=== PATIENT | male | born 1950 | race Caucasian/White ===

== ENCOUNTER 2022-10-10 12:29 | Inpatient (IN) | payer MEDICARE, OTHER, SELFPAY ==
[2022-10-10] VITALS (15 sets, daily range): BP systolic 94–147; BP diastolic 53–84; PULSE 78–103; RESP 14–22; TEMP 36.8–37.3; O2SAT 71–96; BMI 26.4; BMI 27.6
--- NOTE | 2022-10-10 12:51 | RAD_ITS ---
INDICATION: chest pain EXAMINATION/TECHNIQUE: X-RAY - XR Chest 1 View COMPARISON: None. FINDINGS: LINES/DEVICES: None. LUNGS: Minimal right lower lobe fibrosis. Left lung clear. MEDIASTINUM AND CARDIOVASCULAR STRUCTURES: Cardiac silhouette not enlarged. Central airways and mediastinal contour are unremarkable. BONES AND SOFT TISSUES: Unremarkable. RAD/Chest 1 View (Portable) IMPRESSION: Minimal right lower lobe fibrosis. Electronically Signed: Yoshi Madera MD, KAMLESH at 13:45 EDT ,
--- NOTE | 2022-10-10 12:51 | EKG12_ITS ---
Test Reason : SOB Blood Pressure : / mmHG Vent. Rate : 091 BPM Atrial Rate : 091 BPM P-R Int : 138 ms QRS Dur : 080 ms QT Int : 368 ms P-R-T Axes : 004 010 079 degrees QTc Int : 452 ms Sinus rhythm with Premature atrial complexes Nonspecific ST and T wave abnormality Abnormal ECG Confirmed by MERARI MACK, ROSALBA ([id number]), acquisitions editor RACHEL CANTU ([id number]) on 10/12/2022 2:08:57 PM Referred By: YASMIN Confirmed By:ROSALBA GAGE MD
--- NOTE | 2022-10-10 12:52 | ED.VIS.DYS ---
HPI History of Present Illness Chief Complaint: Shortness of Breath Informant: patient Onset/Context/Timing Onset: Days Context: gradual Timing: Continuous Quality: Positive for Dyspnea on exertion, Orthopnea and Wheezing Current Severity: Mild Maximum Severity: Mild Worsened by: Exertion, Lying flat and Coughing Relieved by: Rest Associated Symptoms cough and clear sputum Chest Pain: Positive for Intermittent Narrative Narrative: 71-year-old male history of weak heart muscle coronary disease, diabetes, COPD quit smoking 13 years ago. Is not on home oxygen. Patient says he has had URI symptoms. He saw an urgent care they started on doxycycline on Wednesday and a prednisone taper. He said that she feels worse. He has been having coughing spells and shortness of breath the last 3 days. No hemoptysis. No leg pain or swelling. No history of DVT or PE. PE Risk Factors: Negative for Cancer, OCP + Smoking + > 35, Prior DVT or PE, Recent immobilization, Recent surgery or Recent travel Prior similar symptoms: No Recent Illness/Hospitalization: No PFSH PFS Medical History (Updated 10/10/22 @ 15:[address] Akhil Leyva MD) High cholesterol Hypertension Home Medications atorvastatin 40 mg tablet 40 mg PO DAILY 10/10/22 [History Last Taken 10/09/22] carvedilol 6.25 mg tablet 6.25 mg PO BID 10/10/22 [History Last Taken 10/10/22] clonazepam 1 mg tablet 1 mg PO BID 10/10/22 [History Last Taken 10/10/22] doxycycline hyclate 100 mg capsule 100 mg PO BID 10/10/22 [History Last Taken 10/10/22] imipramine HCl 50 mg tablet 50 mg PO DAILY 10/10/22 [History Last Taken 10/09/22] lisinopril 2.5 mg tablet 2.5 mg PO DAILY 10/10/22 [History Last Taken 10/09/22] metformin 500 mg tablet 500 mg PO BID 10/10/22 [History Last Taken 10/10/22] prednisone 10 mg tablet See Rx Instructions .Route .COMPLEX 10/10/22 [History Last Taken 10/10/22] Allergy/AdvReac Type Severity Reaction Status Date / Time Environmental Allergies: Allergy Mild Other Verified 10/10/22 12:36 Uncoded Social History Smoking Status: Unknown if ever smoked ROS ROS ED ROS Narrative Cough, shortness of breath. Review of Systems ROS Unobtainable: Denies due to encephalopathy Constitutional Constitutional ED: Denies chills or fever(s) Eyes Eyes: Denies blurry vision ENT ENT ED: Denies ear pain Cardiovascular Cardiovascular: Reports chest pain and orthopnea; Denies palpitations or racing heartbeat Respiratory/Chest Respiratory/Chest: Reports cough, dyspnea, dyspnea on exertion, orthopnea and sputum Gastrointestinal Gastrointestinal: Denies abdominal pain, constipation, diarrhea, melena, nausea or vomiting Genitourinary Genitourinary ED: Denies dysuria or hematuria Musculoskeletal Musculoskeletal: Denies arthralgias Integumentary Denies abscess Neurologic Neurologic: Denies headache(s) Psychiatric Psychiatric: Denies anxiety or depression Hematologic/Lymphatic Hematologic/Lymphatic: Denies easy bleeding or easy bruising Allergic/Immunologic Allergic/Immunologic ED: Denies mouth swelling or tongue swelling EXAM Physical Exam Narrative Exam Narrative: 69-year-old male vital signs initially were stable except for pulse ox of 71% on room air on 6 L he is at 96%. H EENT exam unremarkable. Neck nontender. No JVD. No lymphadenopathy. Lungs scattered wheezes. Primarily expiratory. No rales or rhonchi. Heart rate about 100 no murmur. Abdomen soft nontender. Moving all 4 extremities. Calves are nontender that edema or cords. Back nontender. Neurologically he is awake and alert. No focal motor deficits. Const Vital Signs: 10/10/22 12:30 10/10/22 12:36 10/10/22 13:18 Temperature 98.3 F 98.6 F Temperature Source Temporal Oral Pulse Rate 103 H 96 94 Respiratory Rate 20 H 20 H Respiratory Effort Respiratory Pattern Blood Pressure 143/72 H 147/84 H 102/70 Blood Pressure Mean 95 105 80 Pulse Ox 71 96 93 Oxygen Delivery Method Room Air Nasal Cannula Nasal Cannula Oxygen Flow Rate (L/min) 6 6 10/10/22 13:19 10/10/22 13:21 10/10/22 13:23 Temperature Temperature Source Pulse Rate 84 Respiratory Rate 14 Respiratory Effort Normal Respiratory Pattern Normal Normal Blood Pressure Blood Pressure Mean Pulse Ox 94 Oxygen Delivery Method Nasal Cannula Nasal Cannula Oxygen Flow Rate (L/min) 6 6 10/10/22 13:31 10/10/22 14:16 10/10/22 15:01 Temperature 98.6 F 98.6 F Temperature Source Oral Oral Pulse Rate 89 81 86 Respiratory Rate 22 H 15 16 Respiratory Effort Respiratory Pattern Blood Pressure 110/56 L 102/64 102/69 Blood Pressure Mean 73 77 79 Pulse Ox 93 91 93 Oxygen Delivery Method Nasal Cannula Nasal Cannula Oxygen Flow Rate (L/min) 6 6 Positive well nourished and well developed; Negative for obese, cachectic, contractures or unkempt General Appearance ED: well developed and NAD; Negative for unkempt, cachectic, contractures or pallor Nutritional Appearance: Negative for cachectic or obese HEENT Reports moist mucous membranes; Denies dry mucous membranes atraumatic; Negative for trauma or tenderness Mouth ED: No dry mucous membranes Mouth: No dry mucous membranes Eyes PERRL and EOMs intact bilaterally General Eye ED: Negative for pale conjunctiva or scleral icterus Neck no lymphadenopathy, supple, no meningeal signs and no JVD General: Negative for tenderness Lymph Lymphatic: Negative for other Resp normal respiratory effort and No clear to auscultation bilaterally Resp Narrative: Wheezing bilateral primarily expiratory. Effort and Inspection: Negative for pain with movement Auscultation: wheezes; Negative for rales or rhonchi Cardio regular rate, regular rhythm, S1 normal heart sound, S2 normal heart sound and no murmurs Rate: Negative for bradycardia or tachycardic Rhythm: Negative for abnormal rhythm GI non-tender, non-distended and no masses Inspection: Negative for other Auscultation: normoactive bowel sounds Palpation: soft; Negative for tender or guarding Back/Spine no CVA tenderness and normal to inspection General Back: Negative for CVA tenderness or tenderness Extremity normal to inspection General Extremety ED: Negative for edema, tenderness or other findings General Extremity: Negative for edema or other findings Neuro oriented x3 and CN's II-XII intact bilaterally Sensorium / Orientation: alert, oriented to person, oriented to place and oriented to time; Negative for orientation impaired, confused, lethargic or stuporous Speech: speech normal Motor Exam: strength 5/5 throughout Psych mental status grossly normal Appearance: Negative for unkempt Attitude: No agitated Mood & Affect: Negative for depressed, anxious or tearful Thought Process: normal thought process Skin no wounds General Skin Exam: Negative for jaundice or pallor Lesions: no lesions Rashes: no rashes Trauma: Negative for abrasion or laceration MDM MDM MDM Narrative Medical decision making narrative: 71-year-old male with URI symptoms and hypoxia. His initial pulse ox was in the low to mid 70s on room air. He is normally not on oxygen. This may be pneumonia versus URI versus possibly CHF with his history of a weak heart. He has no history or risk factors for PE or DVT. Patient be treated with aerosols and Solu-Medrol IV. Undergo cardiac work-up including a BNP and chest x-ray. Pneumonia is definitely a possibility. Versus a COPD flare. Repeat exam is doing well at 3:05 PM. Still has expiratory wheezing but his breathing is improved. He is on 6 L and his pulse ox is in the mid to high 90s. I am going to turn off his oxygen and have the nurses ambulate him and see what his pulse ox does. Chest x-ray, EKG and labs are unremarkable. I did add a COVID and influenza swabs. Nurses took the patient off of oxygen his sat fell to 83% before he even got up out of bed to try to walk. I spoke to the hospitalist he will be down to evaluate the patient for admission. Awaiting the COVID and influenza swabs. History & Record Review Discussion w/independent historian: Patient and Family Lab Data Attestation: I reviewed the patient's lab results. Lab results narrative: CBC is unremarkable white count 8.9. H&H is 16 and 48. Platelets 189. Electrolytes show sodium 133. Gap of 7. Normal BUN of 17 creatinine 1.2. Glucose 216 she is diabetic. Troponin normal at 11. BNP normal at 46. Chest x-ray shows chronic changes no acute infiltrate or pneumonia. Labs: Laboratory Results - last 24 hr 10/10/22 10/10/22 10/10/22 12:35 12:35 12:35 WBC 8.9 RBC 4.97 Hgb 16.0 Hct 48.1 MCV 96.8 H MCH 32.2 H MCHC 33.3 RDW Std Deviation 50.9 H RDW Coeff of Yuliya 14.2 Plt Count 189 MPV 11.7 Immature Gran % (Auto) 0.700 Neut % (Auto) 75.6 H Lymph % (Auto) 13.6 L [place] % (Auto) 9.6 Eos % (Auto) 0.2 Baso % (Auto) 0.3 Absolute Neuts (auto) 6.8 Absolute Lymphs (auto) 1.22 Nucleated RBC % 0 Sodium 133 L Potassium 3.9 Chloride 97 L Carbon Dioxide 29.0 Anion Gap 7 BUN 17 Creatinine 1.20 Estim Creat Clear Calc 55.64 Est GFR (MDRD) Af Amer 76 Est GFR (MDRD) Non-Af 63 BUN/Creatinine Ratio 14.2 Glucose 216 H Calcium 9.2 Troponin I High Sens 11 B-Natriuretic Peptide 46.0 Radiography Chest X-Ray - ED: 1 View, Read by ED Physician, Normal, Heart, Lungs, Mediastinum and Bony Structures Diagnostic Testing: Clinical Impression(s) from Imaging Studies Chest X-Ray 10/10/22 12:51 IMPRESSION: Minimal right lower lobe fibrosis. Electronically Signed: Yoshi Madera MD, KAMLESH at 13:45 EDT , Chest x-ray, portable, single view, interpreted by myself shows no acute abnormality. Normal cardiac silhouette. No infiltrates. No CHF. No Rhythm Strip Rhythm Strip: Sinus Rhythm Rate: 91 Ectopy: PAC(s) EKG Initial EKG: Attestation: I personally reviewed and interpreted this EKG as follows: Interpretation: Sinus Rhythm and No Acute Injury Pattern Comments: Sinus rhythm rate of 91 occasional PACs. No signs of acute [place]. Nonspecific ST-T wave abnormality in the lateral leads. Discharge Plan Triage Chief Complaint: Shortness of Breath ED Provider: Akhil Leyva Dx/Rx/DC Orders Clinical Impression: URI (upper respiratory infection), Asthma exacerbation in COPD, Hypoxia, History of diabetes mellitus Prescriptions: No Action atorvastatin 40 mg Tablet 40 mg PO DAILY metformin 500 mg Tablet 500 mg PO BID imipramine HCl 50 mg Tablet 50 mg PO DAILY carvedilol 6.25 mg Tablet 6.25 mg PO BID Rx Instructions: must administer with a meal/food prednisone 10 mg Tablet See Rx Instructions .ROUTE .COMPLEX Rx Instructions: 4 tabs daily x2 days then 3 tabs daily x2 days then 2 tabs daily x2 days then 1 tab daily x2 days doxycycline hyclate 100 mg Capsule 100 mg PO BID clonazepam 1 mg Tablet 1 mg PO BID lisinopril 2.5 mg Tablet 2.5 mg PO DAILY Primary Care Provider: Maurice Lange Referrals: Maurice Lange MD [Primary Care Provider] - Disposition Disposition: Acute Care [facility]
[2022-10-10] MEDS: Ipratropium/Albuterol Sulfate 3 ML AMPUL.NEB INHALATION ×2 (13:18→19:45)
[2022-10-10 13:20] LABS: Absolute Lymphocyte Count 1.22 X10^3/uL (0.83-4.51); Absolute Neutrophil Count 6.8 X10^3/uL (2.0-7.7); Basophil# 0.03 X10^3/uL; Basophil% 0.3 % (0-1); Eosinophil# 0.02 X10^3/uL; Eosinophils% 0.2 % (0-5); Hematocrit 48.1 % (40-54); Lymphocyte # 1.22 X10^3/ul (0.83-4.51); Lymphocyte % 13.6 % (19-41); Mean Corp Hgb Conc 33.3 g/dL (32-36); Mean Corpuscular Hgb 32.2 pg (27.0-32.0); Mean Corpuscular Volume 96.8 fL (80-94); Mean Platelet Vol. 11.7 fl (6.2-12.0); Monocyte# 0.86 X10^3/uL; Monocyte% 9.6 % (0-10); NRBC Flagged by Analyzer 0 % (0-5); Neutrophil # 6.75 X10^3/uL (2.7-7.7); Neutrophil % 75.6 % (47-70); Platelet Count 189 K/mm3 (150-450); RBC Distribution Width CV 14.2 % (11.6-14.6); RBC Distribution Width SD 50.9 fl (35.1-43.9); Red Blood Count 4.97 M/mm3 (4.6-6.2); White Blood Count 8.9 K/mm3 (4.4-11.0)
[2022-10-10 13:37] LABS: Anion Gap 7 (5-15); BUN 17 mg/dL (7-18); BUN/Creat Ratio 14.2 RATIO (10-20); Calcium,Total 9.2 mg/dL (8.5-10.1); Chloride 97 mmol/L (98-107); EST Glomerular Filtration Rate 63 mL/min (>60); Est Glom Filt Rate - Afr Amer 76 mL/min (>60); Estimated Creatinine Clearance 55.64 ml/min; Glucose 216 mg/dL (74-106); Potassium 3.9 mmol/L (3.5-5.1); Sodium Level 133 mmol/L (136-145); Troponin-I HS 11 pg/mL (3.0-78.0)
[2022-10-10] MEDS: MethylPREDNISolone 125 MG/2 ML Vial IV (13:39)
--- NOTE | 2022-10-10 15:52 | PCM.HP.STD ---
HPI - General General Date of Admission: 10/10/22 HPI Narrative VELMA BENITEZ, is a 71 M who presents w/ shortness of breath, cough. He has weak heart muscle coronary disease without PCI, diabetes, COPD, and quit smoking 13 years ago.? Is not on home oxygen & inhalers only include albuterol which he takes in the mornings.?Did have PFTs in past. Patient says he has had URI symptoms.? He saw an urgent care Wednesday and they started on doxycycline on Wednesday and a prednisone taper, however he has continued to worsen with shortness of breath.? He? has been having coughing spells and shortness of breath the last 3 days, without fevers. No recent Pnuemonia. He lives at home with , not in [facility]. No swelling in legs or concern of volume overload. There is no chest pain. on presentation to ED, he was in mid 70's on room air, Patient was treated with aerosols and Solu-Medrol IV, and 6 liters oxygen with improvement to 90-96% range and felt much better. CXR was completely clear. Nurses took the patient off of oxygen his sat fell to 83%. COVID/flu negative. WBC count normal at 8.9 Glucose 216 and he is known diabetic [facility] Medical History High cholesterol Hypertension no medical history (diabetes) Home Medications atorvastatin 40 mg tablet 40 mg PO DAILY 10/10/22 [History Last Taken 10/09/22] carvedilol 6.25 mg tablet 6.25 mg PO BID 10/10/22 [History Last Taken 10/10/22] clonazepam 1 mg tablet 1 mg PO BID 10/10/22 [History Last Taken 10/10/22] doxycycline hyclate 100 mg capsule 100 mg PO BID 10/10/22 [History Last Taken 10/10/22] imipramine HCl 50 mg tablet 50 mg PO DAILY 10/10/22 [History Last Taken 10/09/22] lisinopril 2.5 mg tablet 2.5 mg PO DAILY 10/10/22 [History Last Taken 10/09/22] metformin 500 mg tablet 500 mg PO BID 10/10/22 [History Last Taken 10/10/22] prednisone 10 mg tablet See Rx Instructions .Route .COMPLEX 10/10/22 [History Last Taken 10/10/22] Allergy/AdvReac Type Severity Reaction Status Date / Time Environmental Allergies: Allergy Mild Other Verified 10/10/22 12:36 Uncoded Social History Smoking Status: Former smoker Vital Signs Vital Signs Vital Signs: 10/10/22 12:30 10/10/22 12:36 10/10/22 13:18 Temperature 98.3 F 98.6 F Temperature Source Temporal Oral Pulse Rate 103 H 96 94 Respiratory Rate 20 H 20 H Respiratory Effort Respiratory Pattern Blood Pressure 143/72 H 147/84 H 102/70 Blood Pressure Mean 95 105 80 Pulse Ox 71 96 93 Oxygen Delivery Method Room Air Nasal Cannula Nasal Cannula Oxygen Flow Rate (L/min) 6 6 10/10/22 13:19 10/10/22 13:21 10/10/22 13:23 Temperature Temperature Source Pulse Rate 84 Respiratory Rate 14 Respiratory Effort Normal Respiratory Pattern Normal Normal Blood Pressure Blood Pressure Mean Pulse Ox 94 Oxygen Delivery Method Nasal Cannula Nasal Cannula Oxygen Flow Rate (L/min) 6 6 10/10/22 13:31 10/10/22 14:16 10/10/22 15:01 Temperature 98.6 F 98.6 F Temperature Source Oral Oral Pulse Rate 89 81 86 Respiratory Rate 22 H 15 16 Respiratory Effort Respiratory Pattern Blood Pressure 110/56 L 102/64 102/69 Blood Pressure Mean 73 77 79 Pulse Ox 93 91 93 Oxygen Delivery Method Nasal Cannula Nasal Cannula Oxygen Flow Rate (L/min) 6 6 10/10/22 15:46 Temperature 98.6 F Temperature Source Oral Pulse Rate 90 Respiratory Rate 18 Respiratory Effort Respiratory Pattern Blood Pressure 94/53 L Blood Pressure Mean 66 Pulse Ox 92 Oxygen Delivery Method Nasal Cannula Oxygen Flow Rate (L/min) 6 Weight Weight: 179 lb 7.3 oz Body Mass Index (BMI) 26.4 Physical Exam Const alert and well nourished HEENT normocephalic and moist oral mucous membranes Head and Scalp: normal to inspection and normocephalic Eyes PERRL and EOMs intact bilaterally Neck full ROM Resp normal respiratory effort, normal air movement and no retractions Effort and Inspection: able to speak in complete sentences; Negative for audible wheezes Cardio regular rate and regular rhythm Rate: regular rate Heart Sounds: S1 normal and S2 normal GI normal to inspection, nondistended, normoactive bowel sounds Back/Spine normal to inspection Extremity normal to inspection and no pedal edema Skin no rashes or lesions noted General Skin Exam: no breakdown Results Medical Records Data Attestation: I reviewed the patient's medical records Lab / Micro Data Attestation: I reviewed the patient's lab results. Result Diagrams: 10/10/22 12:35 10/10/22 12:35 Labs: Laboratory Results - last 24 hr 10/10/22 12:35: WBC 8.9, RBC 4.97, Hgb 16.0, Hct 48.1, MCV 96.8 H, MCH 32.2 H, MCHC 33.3, RDW Std Deviation 50.9 H, RDW Coeff of Yuliya 14.2, Plt Count 189, MPV 11.7, Immature Gran % (Auto) 0.700, Neut % (Auto) 75.6 H, Lymph % (Auto) 13.6 L, [place] % (Auto) 9.6, Eos % (Auto) 0.2, Baso % (Auto) 0.3, Absolute Neuts (auto) 6.8, Absolute Lymphs (auto) 1.22, Nucleated RBC % 0 10/10/22 12:35: Sodium 133 L, Potassium 3.9, Chloride 97 L, Carbon Dioxide 29.0, Anion Gap 7, BUN 17, Creatinine 1.20, Estim Creat Clear Calc 55.64, Est GFR (MDRD) Af Amer 76, Est GFR (MDRD) Non-Af 63, BUN/Creatinine Ratio 14.2, Glucose 216 H, Calcium 9.2, Troponin I High Sens 11 10/10/22 12:35: B-Natriuretic Peptide 46.0 Micro: Microbiology 10/10/22 15:13 Nasal Secretion SARS-CoV-2 & FLU Antigen (Rapid) - Final Rhythm Strip Rhythm Strip: Sinus Rhythm Rate: 91 Ectopy: PAC(s) EKG Initial EKG: Attestation: I personally reviewed and interpreted this EKG as follows: Prior EKG tracings: available for review EKG Rhythm Intrepretation: Sinus Rhythm Radiology Impression Chest X-Ray 10/10/22 12:51 IMPRESSION: Minimal right lower lobe fibrosis. Electronically Signed: Yoshi Madera MD, KAMLESH at 13:45 EDT , Assessment & Plan Assessment/Plan (1) History of diabetes mellitus: (2) Hypoxia: (3) URI (upper respiratory infection): PLAN: Plan Worsening cough w/severe hypoxia, will treat for COPD and no strong sign of PNA at this piont. Not a heart etiology, or PE although considered. COVID and flu negative. - steroids 40 mg for 5 day course, received IV steroids today. Duonebs every 6 hrs WA, robitussin, Incentive spirometry. - PO azithro x 5 days with added anti-inflammatory effects. - Continuous O2 monitoring w/ O2 therapy at 90% or higher - Obtain VBG for baseline evaluation given severe hypoxia. - Will need oxygen walk test after improvement. - DM with hyperglycemia, DM consistent diet, with glucose checks, continue insulin SSI, ok to continue Metformin inpatient - Resume Statin - Watch bp, continue COREG BID - home imipramin and lorazepam resumed - Lovenox - Full code status, however would not want to be on extended life support if prognosis was poor. Charges/Coding Visit Charges Inpatient E&M: 97491 Init Hosp L3
[2022-10-10] MEDS: Ceftriaxone 1 GM/50 ML BAG IV (17:21)
[2022-10-10 17:45] LABS: Bedside Glucose 224 mg/dL (74-106)
[2022-10-10 17:50] LABS: Blood Gas Specimen Type VEN; O2 Delivery Device Cannula; VBG BASE EXCESS 4 mmol/L (-1.0-3.5); VBG Bicarbonate 29 mmol/L (22-26); VBG PO2 42 mmHg (25-40); VBG SO2 76 % (50-70); VBG TCO2 30 mmol/L (23-33); VBG pCO2 47.6 mmHg (41-51); VBG pH 7.39 (7.32-7.42)
[2022-10-10] MEDS: Azithromycin 250 MG Tablet 500 MG PO (18:24)
[2022-10-10] MEDS: metFORMIN HCl 500 MG Tablet PO (18:24)
[2022-10-10] MEDS: Insulin Lispro 100 UNIT/ML INSULN.PEN SC ×2 (18:25→21:35)
[2022-10-10] MEDS: 0.9% Saline Lock 10 ML Syringe IV ×2 (18:25→21:35)
[2022-10-10] MEDS: Atorvastatin Calcium 40 MG Tablet PO (21:43)
[2022-10-10] MEDS: Carvedilol 6.25 MG Tablet PO (21:43)
[2022-10-10] MEDS: clonazePAM 1 MG Tablet PO (21:43)
[2022-10-10 22:06] LABS: Bedside Glucose 242 mg/dL (74-106)
[2022-10-11] VITALS (28 sets, daily range): BP systolic 101–139; BP diastolic 51–68; PULSE 61–96; RESP 18; TEMP 36.6–36.8; O2SAT 88–96
[2022-10-11 06:28] LABS: Absolute Lymphocyte Count 1.78 X10^3/uL (0.83-4.51); Absolute Neutrophil Count 5.5 X10^3/uL (2.0-7.7); Basophil# 0.02 X10^3/uL; Basophil% 0.2 % (0-1); Eosinophil# 0.01 X10^3/uL; Eosinophils% 0.1 % (0-5); Hematocrit 42.1 % (40-54); Hemoglobin 14.3 g/dL (13.0-16.5); Lymphocyte # 1.78 X10^3/ul (0.83-4.51); Lymphocyte % 21.3 % (19-41); Mean Corpuscular Hgb 32.6 pg (27.0-32.0); Mean Corpuscular Volume 96.1 fL (80-94); Mean Platelet Vol. 11.8 fl (6.2-12.0); Monocyte# 0.98 X10^3/uL; Monocyte% 11.7 % (0-10); NRBC Flagged by Analyzer 0 % (0-5); Neutrophil # 5.53 X10^3/uL (2.7-7.7); Neutrophil % 66.3 % (47-70); Platelet Count 173 K/mm3 (150-450); RBC Distribution Width CV 13.9 % (11.6-14.6); RBC Distribution Width SD 49.6 fl (35.1-43.9); Red Blood Count 4.38 M/mm3 (4.6-6.2); White Blood Count 8.4 K/mm3 (4.4-11.0)
[2022-10-11] MEDS: Insulin Lispro 100 UNIT/ML INSULN.PEN SC ×4 (06:56→22:43)
[2022-10-11 07:00] LABS: Anion Gap 7 (5-15); BUN 20 mg/dL (7-18); BUN/Creat Ratio 20.3 RATIO (10-20); Calcium,Total 8.6 mg/dL (8.5-10.1); Chloride 99 mmol/L (98-107); Creatinine, Serum 0.98 mg/dL (0.70-1.30); EST Glomerular Filtration Rate 79 mL/min (>60); Est Glom Filt Rate - Afr Amer 96 mL/min (>60); Estimated Creatinine Clearance 68.13 ml/min; Glucose 144 mg/dL (74-106); Potassium 3.9 mmol/L (3.5-5.1); Sodium Level 133 mmol/L (136-145)
[2022-10-11] MEDS: Ipratropium/Albuterol Sulfate 3 ML AMPUL.NEB INHALATION ×3 (07:18→19:12)
[2022-10-11 07:26] LABS: Bedside Glucose 153 mg/dL (74-106)
[2022-10-11] MEDS: Lisinopril 2.5 MG Tablet PO (09:10)
[2022-10-11] MEDS: Azithromycin 250 MG Tablet 500 MG PO (09:10)
[2022-10-11] MEDS: clonazePAM 1 MG Tablet PO ×2 (09:10→22:46)
[2022-10-11] MEDS: Enoxaparin 40 MG/0.4 ML Syringe SC (09:10)
[2022-10-11] MEDS: Carvedilol 6.25 MG Tablet PO ×2 (09:10→22:46)
[2022-10-11] MEDS: 0.9% Saline Lock 10 ML Syringe IV ×3 (09:10→22:44)
[2022-10-11] MEDS: metFORMIN HCl 500 MG Tablet PO ×2 (09:10→17:02)
[2022-10-11 09:55] LABS: D-Dimer Quantitative (DVT/PE) 0.56 FEU/ug/m (0.27-0.49)
--- NOTE | 2022-10-11 10:47 | PN.HOSP_ITS ---
Reason for Visit Reason for Visit: Diagnoses Acute upper respiratory infection, unspecified (10/10/22) Hypoxemia (10/10/22) Personal history of other endocrine, nutritional and metabolic disease (10/10/22) Subjective Subjective Examined today, he was noted yesterday for hypoxic respiratory failure and exacerbation of COPD. Patient is currently on 8 L of oxygen via nasal cannula at this time, I ordered some additional lab testing today including a D-dimer which was normal adjusted for his age, a respiratory panel which is pending, and a COVID PCR which is pending. Objective Data Objective Data Vital Signs: Vital Signs Temp Pulse Resp BP Pulse Ox O2 Del Method O2 Flow Rate 98.3 F 84 18 114/68 93 High Flow 8 10/11/22 08:04 10/11/22 10:10 10/11/22 09:08 10/11/22 09:08 10/11/22 10:45 10/11/22 10:45 10/11/22 10:45 Oxygen Flow Rate (L/min) 8 Oxygen Delivery Method High Flow Weight: 84.822 kg Body Mass Index (BMI) 27.6 Intake & Output: Intake and Output for Last 24 Hours 10/09/22 10/10/22 10/11/22 23:59 23:59 23:59 Intake Total 460.77 / 460.77 200 / 200 Balance 460.77 / 460.77 200 / 200 Lab / Micro Data Result Diagrams: 10/11/22 05:55 10/11/22 05:55 Labs: Laboratory Results - last 24 hr 10/10/22 12:35: WBC 8.9, RBC 4.97, Hgb 16.0, Hct 48.1, MCV 96.8 H, MCH 32.2 H, MCHC 33.3, RDW Std Deviation 50.9 H, RDW Coeff of Yuliya 14.2, Plt Count 189, MPV 11.7, Immature Gran % (Auto) 0.700, Neut % (Auto) 75.6 H, Lymph % (Auto) 13.6 L, [place] % (Auto) 9.6, Eos % (Auto) 0.2, Baso % (Auto) 0.3, Absolute Neuts (auto) 6.8, Absolute Lymphs (auto) 1.22, Nucleated RBC % 0 10/10/22 12:35: Sodium 133 L, Potassium 3.9, Chloride 97 L, Carbon Dioxide 29.0, Anion Gap 7, BUN 17, Creatinine 1.20, Estim Creat Clear Calc 55.64, Est GFR ( MDRD) Af Amer 76, Est GFR (MDRD) Non-Af 63, BUN/Creatinine Ratio 14.2, Glucose 216 H, Calcium 9.2, Troponin I High Sens 11 10/10/22 12:35: B-Natriuretic Peptide 46.0 10/10/22 17:18: POC Glucose 224 H 10/10/22 21:34: POC Glucose 242 H 10/11/22 05:55: WBC 8.4, RBC 4.38 L, Hgb 14.3, Hct 42.1, MCV 96.1 H, MCH 32.6 H, MCHC 34.0, RDW Std Deviation 49.6 H, RDW Coeff of Yuliya 13.9, Plt Count 173, MPV 11.8, Immature Gran % (Auto) 0.400, Neut % (Auto) 66.3, Lymph % (Auto) 21.3, [place] % (Auto) 11.7 H, Eos % (Auto) 0.1, Baso % (Auto) 0.2, Absolute Neuts (auto) 5.5, Absolute Lymphs (auto) 1.78, Nucleated RBC % 0 10/11/22 05:55: Sodium 133 L, Potassium 3.9, Chloride 99, Carbon Dioxide 27.0, Anion Gap 7, BUN 20 H, Creatinine 0.98, Estim Creat Clear Calc 68.13, Est GFR (MDRD) Af Amer 96, Est GFR (MDRD) Non-Af 79, BUN/Creatinine Ratio 20.3 H, Glucose 144 H, Calcium 8.6 10/11/22 06:55: POC Glucose 153 H 10/11/22 09:03: D-Dimer Quant (PE/DVT) 0.56 H* Micro: Microbiology 10/10/22 15:13 Nasal Secretion SARS-CoV-2 & FLU Antigen (Rapid) - Final ABG Data ABG results: ABG 10/10/22 17:45 Specimen Type BRYSON VBG pH 7.39 VBG pO2 42 H VBG HCO3 29 H VBG Total CO2 30 VBG O2 Sat (Calc) 76 H VBG Base Excess 4 H POC Mix VBG pCO2 Pt Tmp 47.6 O2 Delivery Device Cannula Liter Flow 6.0 Radiography Diagnostic Testing: Radiology Impression Chest X-Ray 10/10/22 12:51 IMPRESSION: Minimal right lower lobe fibrosis. Electronically Signed: Yoshi Madera MD, KAMLESH at 13:45 EDT , Rhythm Strip Rhythm Strip: Sinus Rhythm Rate: 91 Ectopy: PAC(s) Physical Exam Const alert, oriented x3, no apparent distress and healthy appearing General Appearance: cooperative, well kempt and well developed Orientation / Consciousness: awake, oriented to person, oriented to place and oriented to time HEENT normocephalic and moist oral mucous membranes Eyes PERRL, EOMs intact bilaterally and conjunctivae normal Neck supple, no JVD, thyroid normal and no carotid bruits General: trachea midline Resp normal respiratory effort and no retractions Resp Narrative: Scattered high-pitched expiratory wheezes are noted bilaterally posteriorly Auscultation: wheezes; Negative for rales or rhonchi Cardio regular rate, regular rhythm, S1 normal heart sound, S2 normal heart sound, no murmurs, no rub and no gallops GI normal to inspection, nondistended, normoactive bowel sounds, soft to palpation, non-tender and non-distended Extremity no clubbing, cyanosis or edema Skin no rashes or lesions noted General Skin Exam: no breakdown Neuro oriented x3, CN's II-XII intact bilaterally, no focal motor deficits and no sensory deficits noted Sensorium / Orientation: awake, alert, oriented to person, oriented to place and oriented to time Speech: speech normal Psych affect normal Assessment & Plan Assessment/Plan (1) Hypoxia: PLAN: Plan 1. Acute hypoxic respiratory failure-patient's pulse ox will be monitored, he is currently on 8 L via nasal cannula #2 acute exacerbation of COPD-patient was placed on IV Solu-Medrol and will continue aerosol treatments #3 type 2 diabetes-blood sugars will need to be monitored due to the possibility his blood sugars may elevate due to steroid usage #4 hyperlipidemia-patient is on atorvastatin Total clinical time spent by myself addressing the patient's medical problems, reviewing all of the data, and collaborating with patient's care team: 35- minutes Charges/Coding Visit Charges Inpatient E&M: 62625 Subs Hosp L2
[2022-10-11 11:50] LABS: Bedside Glucose 151 mg/dL (74-106)
[2022-10-11 21:11] LABS: Bedside Glucose 188 mg/dL (74-106)
[2022-10-11] MEDS: Atorvastatin Calcium 40 MG Tablet PO (22:46)
[2022-10-11] MEDS: Imipramine HCl 25 MG Tablet 50 MG PO (22:47)
[2022-10-11 22:56] LABS: Bedside Glucose 177 mg/dL (74-106)
[2022-10-12] VITALS (10 sets, daily range): BP systolic 117–143; BP diastolic 54–69; PULSE 64–105; RESP 16–20; TEMP 36.2–36.8; O2SAT 90–94
[2022-10-12] MEDS: Insulin Lispro 100 UNIT/ML INSULN.PEN SC ×4 (06:40→21:01)
[2022-10-12] MEDS: 0.9% Saline Lock 10 ML Syringe IV ×3 (06:41→20:48)
[2022-10-12 07:10] LABS: Absolute Neutrophil Count 6.7 X10^3/uL (2.0-7.7); Basophil# 0.01 X10^3/uL; Basophil% 0.1 % (0-1); Hematocrit 41.9 % (40-54); Hemoglobin 14.1 g/dL (13.0-16.5); Lymphocyte % 19.7 % (19-41); Mean Corp Hgb Conc 33.7 g/dL (32-36); Mean Corpuscular Hgb 32.3 pg (27.0-32.0); Mean Corpuscular Volume 95.9 fL (80-94); Mean Platelet Vol. 11.7 fl (6.2-12.0); Monocyte# 0.58 X10^3/uL; Monocyte% 6.3 % (0-10); NRBC Flagged by Analyzer 0 % (0-5); Neutrophil # 6.72 X10^3/uL (2.7-7.7); Neutrophil % 73.5 % (47-70); Platelet Count 176 K/mm3 (150-450); RBC Distribution Width CV 13.7 % (11.6-14.6); Red Blood Count 4.37 M/mm3 (4.6-6.2); White Blood Count 9.2 K/mm3 (4.4-11.0)
[2022-10-12] MEDS: Ipratropium/Albuterol Sulfate 3 ML AMPUL.NEB INHALATION ×3 (07:11→19:04)
[2022-10-12 07:20] LABS: Bedside Glucose 153 mg/dL (74-106)
[2022-10-12 07:34] LABS: Anion Gap 5 (5-15); BUN 21 mg/dL (7-18); BUN/Creat Ratio 23.8 RATIO (10-20); Calcium,Total 8.5 mg/dL (8.5-10.1); Chloride 98 mmol/L (98-107); Creatinine, Serum 0.88 mg/dL (0.70-1.30); EST Glomerular Filtration Rate 90 mL/min (>60); Est Glom Filt Rate - Afr Amer 109 mL/min (>60); Estimated Creatinine Clearance 75.88 ml/min; Glucose 171 mg/dL (74-106); Potassium 4.6 mmol/L (3.5-5.1); Sodium Level 130 mmol/L (136-145)
[2022-10-12] MEDS: metFORMIN HCl 500 MG Tablet PO ×2 (08:38→17:27)
--- NOTE | 2022-10-12 10:00 | CASEMGMT ---
JANINE PATE Assessment: Face to Face with pt for initial transition planning/care coordination assessment. RN HERLINDA introduced self and role at [facility], pt voices understanding and consents to assessment. Pt is A/O x4 and answers all questions appropriately at this time. Pt sitting up in bed with oxygen on in no distress. Care providers, pharmacy, and demographics verified/updated. Admitting Dx: acute hypoxic resp failure PCP:Anisa Specialists:Jose Rafael cardio at [facility] Pharmacy: Janet Bunch Insurance: [facility] Supp Prescription Benefit: yes LNOK: Omayra Lopez, Living Arrangements: Pt lives in a single story home with 1 step to enter with a grab bar. Pt reports he is I in ADL's and denies concerns at home. Pt reports using treadmill at least 5 days per week for half hour at a time. Transportation: Pt drives self and denies concerns with transportation. DME/HHC/SNF: Pt denies having any DME in the home. States he is not supposed to check his blood sugars. Pt denies hx of HHC or SNF stays. Pt states no concerns with going home at time of dc. Pt states he is very determined to not be on insulin or oxygen. Discussed local in network DME companies should pt need oxygen upon dc, pt chose [employer]. Pt states no further concerns/needs. CM to follow. Advised pt to ask CM if any further question/concerns/needs arise, voices understanding. Pt Goal: Home Plan: Home, follow for oxygen.
[2022-10-12] MEDS: Enoxaparin 40 MG/0.4 ML Syringe SC (11:00)
[2022-10-12] MEDS: Carvedilol 6.25 MG Tablet PO ×2 (11:00→20:48)
[2022-10-12] MEDS: Azithromycin 250 MG Tablet 500 MG PO (11:01)
[2022-10-12] MEDS: Lisinopril 2.5 MG Tablet PO (11:01)
[2022-10-12] MEDS: clonazePAM 1 MG Tablet PO ×2 (11:04→20:48)
[2022-10-12 15:35] LABS: Bedside Glucose 315 mg/dL (74-106)
--- NOTE | 2022-10-12 15:35 | PCM.PN.HOSP ---
Reason for Visit Reason for Visit: Diagnoses Acute upper respiratory infection, unspecified (10/10/22) Hypoxemia (10/10/22) Personal history of other endocrine, nutritional and metabolic disease (10/10/22) Subjective Subjective Patient was seen and examined today, he was positive yesterday for human metapneumovirus. Patient is currently on 6 L of oxygen via nasal cannula, I have elected to keep him on Zithromax for the time being. Objective Data Objective Data Vital Signs: Vital Signs Temp Pulse Resp BP Pulse Ox O2 Del Method O2 Flow Rate 98.2 F 90 16 143/68 H 92 High Flow 6 10/12/22 15:05 10/12/22 15:05 10/12/22 15:05 10/12/22 15:05 10/12/22 15:05 10/12/22 15:10 10/12/22 15:10 Oxygen Flow Rate (L/min) 6 Oxygen Delivery Method High Flow Weight: 84.822 kg Body Mass Index (BMI) 27.6 Intake & Output: Intake and Output for Last 24 Hours 10/10/22 10/11/22 10/12/22 23:59 23:59 23:59 Intake Total 460.77 / 460.77 600 / 600 200 / 200 Balance 460.77 / 460.77 600 / 600 200 / 200 Lab / Micro Data Result Diagrams: 10/12/22 05:52 10/12/22 05:52 Labs: Laboratory Results - last 24 hr 10/11/22 17:00: POC Glucose 188 H 10/11/22 22:36: POC Glucose 177 H 10/12/22 05:52: WBC 9.2, RBC 4.37 L, Hgb 14.1, Hct 41.9, MCV 95.9 H, MCH 32.3 H, MCHC 33.7, RDW Std Deviation 49.0 H, RDW Coeff of Yuliya 13.7, Plt Count 176, MPV 11.7, Immature Gran % (Auto) 0.400, Neut % (Auto) 73.5 H, Lymph % (Auto) 19.7, [place] % (Auto) 6.3, Eos % (Auto) 0.0, Baso % (Auto) 0.1, Absolute Neuts (auto) 6.7, Absolute Lymphs (auto) 1.80, Nucleated RBC % 0 10/12/22 05:52: Sodium 130 L, Potassium 4.6, Chloride 98, Carbon Dioxide 27.0, Anion Gap 5, BUN 21 H, Creatinine 0.88, Estim Creat Clear Calc 75.88, Est GFR (MDRD) Af Amer 109, Est GFR (MDRD) Non-Af 90, BUN/Creatinine Ratio 23.8 H, Glucose 171 H, Calcium 8.5 10/12/22 06:34: POC Glucose 153 H Micro: Microbiology 10/11/22 09:15 Mucosa - Nasopharyngeal Respiratory Panel (PCR) - Final Human [place] 10/10/22 15:13 Nasal Secretion SARS-CoV-2 & FLU Antigen (Rapid) - Final Rhythm Strip Rhythm Strip: Sinus Rhythm Rate: 91 Ectopy: PAC(s) Physical Exam Const alert, oriented x3, no apparent distress and average body habitus General Appearance: cooperative, well kempt and well developed Orientation / Consciousness: awake, oriented to person, oriented to place and oriented to time HEENT normocephalic, head/scalp atraumatic and moist oral mucous membranes Eyes PERRL, EOMs intact bilaterally and conjunctivae normal Neck supple, no JVD, thyroid normal and no carotid bruits General: trachea midline Resp normal respiratory effort, no retractions and no use of accessory muscles Resp Narrative: Decreased breath sounds are noted bilaterally Auscultation: Negative for rales, rhonchi or wheezes Cardio regular rate, regular rhythm, S1 normal heart sound, S2 normal heart sound, no murmurs, no rub and no gallops GI normal to inspection, nondistended, normoactive bowel sounds, soft to palpation, non-tender and non-distended Extremity no clubbing, cyanosis or edema Skin no rashes or lesions noted General Skin Exam: no breakdown Neuro oriented x3, CN's II-XII intact bilaterally, moves all extremities, no focal motor deficits and no sensory deficits noted Sensorium / Orientation: awake, alert, oriented to person, oriented to place and oriented to time Speech: speech normal Psych affect normal Assessment & Plan Assessment/Plan (1) URI (upper respiratory infection): PLAN: Plan 1. Acute hypoxic respiratory failure secondary to human metapneumovirus tracheobronchitis-continue IV Solu-Medrol and aerosol treatments, monitor pulse ox, adjust oxygen #2 human [place] pneumo virus tracheobronchitis-continue to supply supportive care, I have elected to keep the patient on Zithromax for now #3 type 2 diabetes-continue to monitor blood sugars, sliding scale insulin has been ordered, fingerstick blood sugars #4 hyperlipidemia-patient will remain on atorvastatin #5 acute exacerbation of COPD due to human metapneumovirus tracheobronchitis continue IV corticosteroids and aerosol treatments Charges/Coding Visit Charges Inpatient E&M: 35448 Subs Hosp L2
[2022-10-12 18:40] LABS: Bedside Glucose 197 mg/dL (74-106)
[2022-10-12] MEDS: Atorvastatin Calcium 40 MG Tablet PO (20:48)
[2022-10-12] MEDS: Imipramine HCl 25 MG Tablet 50 MG PO (20:49)
[2022-10-13] VITALS (10 sets, daily range): BP systolic 109–119; BP diastolic 58–72; PULSE 65–96; RESP 16–18; TEMP 36.6; O2SAT 92–94
[2022-10-13 00:20] LABS: Bedside Glucose 273 mg/dL (74-106)
[2022-10-13 06:22] LABS: Absolute Lymphocyte Count 2.14 X10^3/uL (0.83-4.51); Absolute Neutrophil Count 8.5 X10^3/uL (2.0-7.7); Basophil# 0.02 X10^3/uL; Basophil% 0.2 % (0-1); Hematocrit 41.7 % (40-54); Lymphocyte # 2.14 X10^3/ul (0.83-4.51); Lymphocyte % 18.3 % (19-41); Mean Corp Hgb Conc 33.6 g/dL (32-36); Mean Corpuscular Volume 95.4 fL (80-94); Mean Platelet Vol. 11.8 fl (6.2-12.0); Monocyte# 0.92 X10^3/uL; Monocyte% 7.9 % (0-10); NRBC Flagged by Analyzer 0 % (0-5); Neutrophil # 8.53 X10^3/uL (2.7-7.7); Neutrophil % 72.9 % (47-70); Platelet Count 181 K/mm3 (150-450); RBC Distribution Width CV 13.8 % (11.6-14.6); RBC Distribution Width SD 48.9 fl (35.1-43.9); Red Blood Count 4.37 M/mm3 (4.6-6.2); White Blood Count 11.7 K/mm3 (4.4-11.0)
[2022-10-13] MEDS: Insulin Lispro 100 UNIT/ML INSULN.PEN SC ×4 (06:22→22:12)
[2022-10-13] MEDS: 0.9% Saline Lock 10 ML Syringe IV ×3 (06:23→22:08)
[2022-10-13] MEDS: Ipratropium/Albuterol Sulfate 3 ML AMPUL.NEB INHALATION ×3 (06:45→19:40)
[2022-10-13 06:50] LABS: Bedside Glucose 164 mg/dL (74-106)
[2022-10-13 07:00] LABS: Anion Gap 6 (5-15); BUN 22 mg/dL (7-18); BUN/Creat Ratio 21.6 RATIO (10-20); Chloride 98 mmol/L (98-107); Creatinine, Serum 1.02 mg/dL (0.70-1.30); EST Glomerular Filtration Rate 76 mL/min (>60); Est Glom Filt Rate - Afr Amer 92 mL/min (>60); Estimated Creatinine Clearance 65.46 ml/min; Glucose 165 mg/dL (74-106); Potassium 4.5 mmol/L (3.5-5.1); Sodium Level 132 mmol/L (136-145)
[2022-10-13] MEDS: metFORMIN HCl 500 MG Tablet PO ×2 (08:14→17:04)
[2022-10-13] MEDS: Lisinopril 2.5 MG Tablet PO (11:07)
[2022-10-13] MEDS: Enoxaparin 40 MG/0.4 ML Syringe SC (11:07)
[2022-10-13] MEDS: clonazePAM 1 MG Tablet PO ×2 (11:07→22:09)
[2022-10-13] MEDS: Carvedilol 6.25 MG Tablet PO ×2 (11:07→22:08)
[2022-10-13] MEDS: Azithromycin 250 MG Tablet 500 MG PO (11:08)
[2022-10-13 11:40] LABS: Bedside Glucose 237 mg/dL (74-106)
--- NOTE | 2022-10-13 17:41 | PN.HOSP_ITS ---
Reason for Visit Reason for Visit: Diagnoses Acute upper respiratory infection, unspecified (10/10/22) Hypoxemia (10/10/22) Personal history of other endocrine, nutritional and metabolic disease (10/10/22) Subjective Subjective Patient was seen and examined today, he is currently on 4 L of nasal cannula oxygen and appears comfortable. Objective Data Objective Data Vital Signs: Vital Signs Temp Pulse Resp BP Pulse Ox O2 Del Method O2 Flow Rate 97.9 F 85 16 109/72 94 High Flow 6 10/13/22 14:41 10/13/22 14:41 10/13/22 14:41 10/13/22 14:41 10/13/22 14:41 10/13/22 14:41 10/13/22 10:59 FiO2 4 10/13/22 14:41 Oxygen Flow Rate (L/min) 6 Oxygen Delivery Method High Flow Weight: 84.822 kg Body Mass Index (BMI) 27.6 Intake & Output: Intake and Output for Last 24 Hours 10/11/22 10/12/22 10/13/22 23:59 23:59 23:59 Intake Total 600 / 600 200 / 200 Balance 600 / 600 200 / 200 Lab / Micro Data Result Diagrams: 10/13/22 05:51 10/13/22 05:51 Labs: Laboratory Results - last 24 hr 10/12/22 17:24: POC Glucose 197 H 10/12/22 21:00: POC Glucose 273 H 10/13/22 05:51: WBC 11.7 H, RBC 4.37 L, Hgb 14.0, Hct 41.7, MCV 95.4 H, MCH 32.0, MCHC 33.6, RDW Std Deviation 48.9 H, RDW Coeff of Yuliya 13.8, Plt Count 181, MPV 11.8, Immature Gran % (Auto) 0.700, Neut % (Auto) 72.9 H, Lymph % (Auto) 18.3 L, [place] % (Auto) 7.9, Eos % (Auto) 0.0, Baso % (Auto) 0.2, Absolute Neuts (auto) 8.5 H, Absolute Lymphs (auto) 2.14, Nucleated RBC % 0 10/13/22 05:51: Sodium 132 L, Potassium 4.5, Chloride 98, Carbon Dioxide 28.0, Anion Gap 6, BUN 22 H, Creatinine 1.02, Estim Creat Clear Calc 65.46, Est GFR (MDRD) Af Amer 92, Est GFR (MDRD) Non-Af 76, BUN/Creatinine Ratio 21.6 H, Glucose 165 H, Calcium 9.0 10/13/22 06:21: POC Glucose 164 H 10/13/22 10:53: POC Glucose 237 H Micro: Microbiology 10/11/22 09:15 Mucosa - Nasopharyngeal Respiratory Panel (PCR) - Final Human [place] 10/10/22 15:13 Nasal Secretion SARS-CoV-2 & FLU Antigen (Rapid) - Final Rhythm Strip Rhythm Strip: Sinus Rhythm Rate: 91 Ectopy: PAC(s) Physical Exam Narrative alert, oriented x3, no apparent distress and average body habitus General Appearance: cooperative, well kempt and well developed Orientation / Consciousness: awake, oriented to person, oriented to place and oriented to time HEENT normocephalic, head/scalp atraumatic and moist oral mucous membranes Eyes PERRL, EOMs intact bilaterally and conjunctivae normal Neck supple, no JVD, thyroid normal and no carotid bruits General: trachea midline Resp normal respiratory effort, no retractions and no use of accessory muscles Resp Narrative: Decreased breath sounds are noted bilaterally Auscultation: Negative for rales, rhonchi or wheezes Cardio regular rate, regular rhythm, S1 normal heart sound, S2 normal heart sound, no murmurs, no rub and no gallops GI normal to inspection, nondistended, normoactive bowel sounds, soft to palpation, non-tender and non-distended Extremity no clubbing, cyanosis or edema Skin no rashes or lesions noted General Skin Exam: no breakdown Neuro oriented x3, CN's II-XII intact bilaterally, moves all extremities, no focal motor deficits and no sensory deficits noted Sensorium / Orientation: awake, alert, oriented to person, oriented to place and oriented to time Speech: speech normal Psych affect normal Assessment & Plan Assessment/Plan (1) URI (upper respiratory infection): PLAN: Plan 1. Acute hypoxic respiratory failure secondary to human metapneumovirus tracheobronchitis-continue IV Solu-Medrol and aerosol treatments, monitor pulse ox, adjust oxygen #2 human [place] pneumo virus tracheobronchitis-continue to supply supportive care, I have elected to keep the patient on Zithromax for now #3 type 2 diabetes-continue to monitor blood sugars, sliding scale insulin has been ordered, fingerstick blood sugars #4 hyperlipidemia-patient will remain on atorvastatin #5 acute exacerbation of COPD due to human metapneumovirus tracheobronchitis continue IV corticosteroids and aerosol treatments Total clinical time spent by myself addressing the patient's medical problems, reviewing all of his data, and collaborating with the patient's care team: 35 angel pulido Charges/Coding Visit Charges Inpatient E&M: 87666 Subs Hosp L2
[2022-10-13 20:40] LABS: Bedside Glucose 179 mg/dL (74-106)
[2022-10-13] MEDS: Atorvastatin Calcium 40 MG Tablet PO (22:08)
[2022-10-13] MEDS: Imipramine HCl 25 MG Tablet 50 MG PO (22:09)
[2022-10-13 22:35] LABS: Bedside Glucose 230 mg/dL (74-106)
[2022-10-14] VITALS (8 sets, daily range): BP systolic 112–125; BP diastolic 49–70; PULSE 60–88; RESP 17–18; TEMP 36.3–37; O2SAT 87–94
[2022-10-14] MEDS: 0.9% Saline Lock 10 ML Syringe IV (06:11)
[2022-10-14 06:25] LABS: Absolute Lymphocyte Count 2.01 X10^3/uL (0.83-4.51); Absolute Neutrophil Count 8.6 X10^3/uL (2.0-7.7); Basophil# 0.01 X10^3/uL; Basophil% 0.1 % (0-1); Hematocrit 41.5 % (40-54); Lymphocyte # 2.01 X10^3/ul (0.83-4.51); Lymphocyte % 16.9 % (19-41); Mean Corp Hgb Conc 33.7 g/dL (32-36); Mean Corpuscular Hgb 32.4 pg (27.0-32.0); Mean Corpuscular Volume 96.1 fL (80-94); Mean Platelet Vol. 11.7 fl (6.2-12.0); Monocyte# 1.13 X10^3/uL; Monocyte% 9.5 % (0-10); NRBC Flagged by Analyzer 0 % (0-5); Neutrophil # 8.61 X10^3/uL (2.7-7.7); Neutrophil % 72.6 % (47-70); Platelet Count 188 K/mm3 (150-450); RBC Distribution Width CV 13.5 % (11.6-14.6); RBC Distribution Width SD 48.5 fl (35.1-43.9); Red Blood Count 4.32 M/mm3 (4.6-6.2); White Blood Count 11.9 K/mm3 (4.4-11.0)
[2022-10-14 06:36] LABS: Bedside Glucose 148 mg/dL (74-106)
[2022-10-14 06:51] LABS: Anion Gap 5 (5-15); BUN 24 mg/dL (7-18); BUN/Creat Ratio 24.6 RATIO (10-20); Calcium,Total 8.6 mg/dL (8.5-10.1); Chloride 97 mmol/L (98-107); Creatinine, Serum 0.98 mg/dL (0.70-1.30); EST Glomerular Filtration Rate 80 mL/min (>60); Est Glom Filt Rate - Afr Amer 97 mL/min (>60); Estimated Creatinine Clearance 68.13 ml/min; Glucose 165 mg/dL (74-106); Potassium 4.1 mmol/L (3.5-5.1); Sodium Level 131 mmol/L (136-145)
[2022-10-14] MEDS: Ipratropium/Albuterol Sulfate 3 ML AMPUL.NEB INHALATION ×2 (07:02→13:24)
[2022-10-14] MEDS: metFORMIN HCl 500 MG Tablet PO ×2 (07:48→14:22)
[2022-10-14] MEDS: Enoxaparin 40 MG/0.4 ML Syringe SC (07:48)
[2022-10-14] MEDS: Carvedilol 6.25 MG Tablet PO (07:48)
[2022-10-14] MEDS: Lisinopril 2.5 MG Tablet PO (07:48)
[2022-10-14] MEDS: Azithromycin 250 MG Tablet 500 MG PO (07:48)
[2022-10-14] MEDS: clonazePAM 1 MG Tablet PO (07:49)
--- NOTE | 2022-10-14 11:10 | PCM.PN.HOSP ---
Reason for Visit Reason for Visit: Diagnoses Acute upper respiratory infection, unspecified (10/10/22) Hypoxemia (10/10/22) Personal history of other endocrine, nutritional and metabolic disease (10/10/22) Subjective Subjective Patient was seen and examined today, he is still requiring supplemental oxygen at 2 L/min. I have elected to stop the patient's Zithromax today. Objective Data Objective Data Vital Signs: Vital Signs Temp Pulse Resp BP Pulse Ox O2 Del Method O2 Flow Rate 97.4 F L 68 18 125/67 H 92 Nasal Cannula 2 10/14/22 07:52 10/14/22 07:52 10/14/22 08:00 10/14/22 07:52 10/14/22 08:00 10/14/22 08:00 10/14/22 08:00 FiO2 4 10/13/22 14:41 Oxygen Flow Rate (L/min) 2 Oxygen Delivery Method Nasal Cannula Weight: 84.822 kg Body Mass Index (BMI) 27.6 Intake & Output: Intake and Output for Last 24 Hours 10/12/22 10/13/22 10/14/22 23:59 23:59 23:59 Intake Total 200 / 200 Balance 200 / 200 Lab / Micro Data Result Diagrams: 10/14/22 05:55 10/14/22 05:55 Labs: Laboratory Results - last 24 hr 10/13/22 10:53: POC Glucose 237 H 10/13/22 17:06: POC Glucose 179 H 10/13/22 22:12: POC Glucose 230 H 10/14/22 05:55: WBC 11.9 H, RBC 4.32 L, Hgb 14.0, Hct 41.5, MCV 96.1 H, MCH 32.4 H, MCHC 33.7, RDW Std Deviation 48.5 H, RDW Coeff of Yuliya 13.5, Plt Count 188, MPV 11.7, Immature Gran % (Auto) 0.900, Neut % (Auto) 72.6 H, Lymph % (Auto) 16.9 L, [place] % (Auto) 9.5, Eos % (Auto) 0.0, Baso % (Auto) 0.1, Absolute Neuts (auto) 8.6 H, Absolute Lymphs (auto) 2.01, Nucleated RBC % 0 10/14/22 05:55: Sodium 131 L, Potassium 4.1, Chloride 97 L, Carbon Dioxide 29.0, Anion Gap 5, BUN 24 H, Creatinine 0.98, Estim Creat Clear Calc 68.13, Est GFR (MDRD) Af Amer 97, Est GFR (MDRD) Non-Af 80, BUN/Creatinine Ratio 24.6 H, Glucose 165 H, Calcium 8.6 10/14/22 06:10: POC Glucose 148 H Micro: Microbiology 10/11/22 09:15 Mucosa - Nasopharyngeal Respiratory Panel (PCR) - Final Human [place] 10/10/22 15:13 Nasal Secretion SARS-CoV-2 & FLU Antigen (Rapid) - Final Rhythm Strip Rhythm Strip: Sinus Rhythm Rate: 91 Ectopy: PAC(s) Physical Exam Narrative alert, oriented x3, no apparent distress and average body habitus General Appearance: cooperative, well kempt and well developed Orientation / Consciousness: awake, oriented to person, oriented to place and oriented to time HEENT normocephalic, head/scalp atraumatic and moist oral mucous membranes Eyes PERRL, EOMs intact bilaterally and conjunctivae normal Neck supple, no JVD, thyroid normal and no carotid bruits General: trachea midline Resp normal respiratory effort, no retractions and no use of accessory muscles Resp Narrative: Decreased breath sounds are noted bilaterally Auscultation: Negative for rales, rhonchi or wheezes Cardio regular rate, regular rhythm, S1 normal heart sound, S2 normal heart sound, no murmurs, no rub and no gallops GI normal to inspection, nondistended, normoactive bowel sounds, soft to palpation, non-tender and non-distended Extremity no clubbing, cyanosis or edema Skin no rashes or lesions noted General Skin Exam: no breakdown Neuro oriented x3, CN's II-XII intact bilaterally, moves all extremities, no focal motor deficits and no sensory deficits noted Sensorium / Orientation: awake, alert, oriented to person, oriented to place and oriented to time Speech: speech normal Psych affect normal Assessment & Plan Assessment/Plan (1) Hypoxia: (2) URI (upper respiratory infection): PLAN: Plan 1. Acute hypoxic respiratory failure secondary to human metapneumovirus tracheobronchitis-continue IV Solu-Medrol and aerosol treatments, monitor pulse ox, adjust oxygen #2 human [place] pneumo virus tracheobronchitis-continue to supply supportive care, I have elected to stop his Zithromax #3 type 2 diabetes-continue to monitor blood sugars, sliding scale insulin has been ordered, fingerstick blood sugars #4 hyperlipidemia-patient will remain on atorvastatin #5 acute exacerbation of COPD due to human metapneumovirus tracheobronchitis continue IV corticosteroids and aerosol treatments Total clinical time spent by myself addressing the patient's medical problems, reviewing all of his data, and collaborating with the patient's care team: 35 minutes Charges/Coding Visit Charges Inpatient E&M: 12740 Subs Hosp L2
[2022-10-14 11:36] LABS: Bedside Glucose 228 mg/dL (74-106)
--- NOTE | 2022-10-14 15:05 | DCINST_ITS ---
Discharge Instructions Diet Discharge Diet: 1800 Calorie Control Diet Activity Discharge Activity: Return to Normal Activity Weight Bearing Status: Full weight bearing Follow Up Care Test Results: Test results from this visit will be discussed in further detail at your follow- up appointment, if applicable. Discharge Plan Admission Admit Date/Time: 10/10/22 15:40 Primary Reason for Your Visit: viral respiuratory infection Attending Provider: Yoshi Goss Primary Care Provider: Maurice Lange Consulting Providers: Alfie Weaver Discharge Orders/Prescriptions Prescriptions: New prednisone 20 mg tablet 40 mg PO DAILY Qty: 11 0RF Rx Instructions: one twice a day for 3 days, then one daily for 3 days, then 1/2 daily until finished albuterol sulfate [ProAir HFA] 90 mcg/actuation HFA aerosol inhaler 2 puff inhalation Q6H PRN (Reason: shortness of breath or wheezing) Qty: 8.5 0RF Rx Instructions: use two puffs four times a day for 5 days, then two puffs four times a day as needed Continued atorvastatin 40 mg Tablet 40 mg PO DAILY metformin 500 mg Tablet 500 mg PO BID imipramine HCl 50 mg Tablet 50 mg PO DAILY carvedilol 6.25 mg Tablet 6.25 mg PO BID Rx Instructions: must administer with a meal/food clonazepam 1 mg Tablet 1 mg PO BID lisinopril 2.5 mg Tablet 2.5 mg PO DAILY Discontinued prednisone 10 mg Tablet See Rx Instructions .ROUTE .COMPLEX Rx Instructions: 4 tabs daily x2 days then 3 tabs daily x2 days then 2 tabs daily x2 days then 1 tab daily x2 days doxycycline hyclate 100 mg Capsule 100 mg PO BID Referrals / Follow Up: Maurice Lange MD [Primary Care Provider] - In 1 Week Disposition Disposition (needs filled in before D/C Order can be placed): Home, Self Care
--- NOTE | 2022-10-14 15:15 | PCM.DC.SUM ---
Providers Date of Admission: 10/10/22 Date of Discharge: 10/14/22 Primary Care Physician: Dr. Maurice Lange MD Reason For Visit: ACUTE HYPOXIC RESP FAILURE Diagnosis Discharge Diagnosis (1) Hypoxia: Status: Acute Code(s): R09.02 - Hypoxemia (2) URI (upper respiratory infection): Status: Acute Code(s): J06.9 - Acute upper respiratory infection, unspecified Plan 1. Acute hypoxic respiratory failure secondary to human metapneumovirus tracheobronchitis-continue IV Solu-Medrol and aerosol treatments, monitor pulse ox, adjust oxygen #2 human [employer] pneumo virus tracheobronchitis-continue to supply supportive care, I have elected to stop his Zithromax #3 type 2 diabetes-continue to monitor blood sugars, sliding scale insulin has been ordered, fingerstick blood sugars #4 hyperlipidemia-patient will remain on atorvastatin #5 acute exacerbation of COPD due to human metapneumovirus tracheobronchitis continue IV corticosteroids and aerosol treatments Total clinical time spent by myself addressing the patient's medical problems, reviewing all of his data, and collaborating with the patient's care team: 35 minutes Medications at Discharge Home Medications atorvastatin 40 mg tablet 40 mg PO DAILY 10/10/22 carvedilol 6.25 mg tablet 6.25 mg PO BID 10/10/22 clonazepam 1 mg tablet 1 mg PO BID 10/10/22 imipramine HCl 50 mg tablet 50 mg PO DAILY 10/10/22 lisinopril 2.5 mg tablet 2.5 mg PO DAILY 10/10/22 metformin 500 mg tablet 500 mg PO BID 10/10/22 albuterol sulfate 90 mcg/actuation aerosol inhaler (ProAir HFA) 2 puff inhalation Q6H PRN shortness of breath or wheezing #8.5 grams 10/14/22 prednisone 20 mg tablet 40 mg PO DAILY #11 tabs 10/14/22 Hospital Course Operations None Procedures None Summary of Care Provided Minutes Spent on Discharge: 31 Hospital Course: 71-year-old white male was seen in the emergency room at [facility] with a chief complaint of cough, shortness of breath, and wheezing. Patient had recently been seen at an urgent care clinic and started on doxycycline and a prednisone taper, but his shortness of breath continued to worsen. On examination in the ER, patient's pulse ox was in the mid 70s on room air, patient was given aerosol treatments and IV Solu-Medrol, he required 6 L of oxygen to maintain his pulse ox above 90%. Patient's COVID and flu antigens were negative. Patient's chest x-ray showed minimal right lower lobe fibrosis. Patient was admitted to [facility], he was placed on aerosol treatments and IV corticosteroids, I ordered a respiratory panel on the patient which was positive for human metapneumovirus. Patient's oxygenation improved over the next several days, at the day of discharge, patient did not qualify for home O2. On 10/14/2022, patient was seen and examined: On examination he appeared in good health and spirits. Vital signs as documented. Skin warm and dry and without overt rashes. Neck without JVD, neck was supple, trachea midline, thyroid was normal. Lungs clear bilaterally, normal air movement was noted. Heart exam notable for regular rhythm, normal sounds and absence of murmurs, rubs or gallops. Abdomen unremarkable and without evidence of organomegaly, masses, or abdominal aortic enlargement. Bowel sounds are present, abdomen is not distended. Extremities nonedematous, no cyanosis was noted, no clubbing was noted. Neuro: Cranial nerves II through XII are grossly intact, no focal motor deficits were noted, sensation to light touch and pinprick intact, motor exam 5/5 throughout. Psych: Patient is alert and oriented x3, he does not appear anxious or depressed, he does not appear agitated. Patient appears stable for discharge home on 10/14/2022. Weight / BMI Weight Weight: 84.822 kg Body Mass Index (BMI) 27.6 ABG / Lab / Microbiology Data Result Diagrams: 10/14/22 05:55 10/14/22 05:55 Laboratory: Laboratory Results - last 24 hr 10/13/22 17:06: POC Glucose 179 H 10/13/22 22:12: POC Glucose 230 H 10/14/22 05:55: WBC 11.9 H, RBC 4.32 L, Hgb 14.0, Hct 41.5, MCV 96.1 H, MCH 32.4 H, MCHC 33.7, RDW Std Deviation 48.5 H, RDW Coeff of Yuliya 13.5, Plt Count 188, MPV 11.7, Immature Gran % (Auto) 0.900, Neut % (Auto) 72.6 H, Lymph % (Auto) 16.9 L, [place] % (Auto) 9.5, Eos % (Auto) 0.0, Baso % (Auto) 0.1, Absolute Neuts (auto) 8.6 H, Absolute Lymphs (auto) 2.01, Nucleated RBC % 0 10/14/22 05:55: Sodium 131 L, Potassium 4.1, Chloride 97 L, Carbon Dioxide 29.0, Anion Gap 5, BUN 24 H, Creatinine 0.98, Estim Creat Clear Calc 68.13, Est GFR (MDRD) Af Amer 97, Est GFR (MDRD) Non-Af 80, BUN/Creatinine Ratio 24.6 H, Glucose 165 H, Calcium 8.6 10/14/22 06:10: POC Glucose 148 H 10/14/22 11:13: POC Glucose 228 H Microbiology: Microbiology 10/11/22 09:15 Mucosa - Nasopharyngeal Respiratory Panel (PCR) - Final Human [employer] 10/10/22 15:13 Nasal Secretion SARS-CoV-2 & FLU Antigen (Rapid) - Final D/C Instructions Discharge Diet: 1800 Calorie Control Diet Weight Bearing Status: Full weight bearing Meaningful Use Info Meaningful Use Diagnoses (Choose all that apply): None applicable Discharge Plan Admission Admit Date/Time: 10/10/22 15:40 Primary Reason for Your Visit: viral respiuratory infection Attending Provider: Yoshi Goss Primary Care Provider: Maurice Lange Consulting Providers: Alfie Weaver Discharge Orders/Prescriptions Prescriptions: New prednisone 20 mg tablet 40 mg PO DAILY Qty: 11 0RF Rx Instructions: one twice a day for 3 days, then one daily for 3 days, then 1/2 daily until finished albuterol sulfate [ProAir HFA] 90 mcg/actuation HFA aerosol inhaler 2 puff inhalation Q6H PRN (Reason: shortness of breath or wheezing) Qty: 8.5 0RF Rx Instructions: use two puffs four times a day for 5 days, then two puffs four times a day as needed Continued atorvastatin 40 mg Tablet 40 mg PO DAILY metformin 500 mg Tablet 500 mg PO BID imipramine HCl 50 mg Tablet 50 mg PO DAILY carvedilol 6.25 mg Tablet 6.25 mg PO BID Rx Instructions: must administer with a meal/food clonazepam 1 mg Tablet 1 mg PO BID lisinopril 2.5 mg Tablet 2.5 mg PO DAILY Discontinued prednisone 10 mg Tablet See Rx Instructions .ROUTE .COMPLEX Rx Instructions: 4 tabs daily x2 days then 3 tabs daily x2 days then 2 tabs daily x2 days then 1 tab daily x2 days doxycycline hyclate 100 mg Capsule 100 mg PO BID Referrals / Follow Up: Maurice Lange MD [Primary Care Provider] - In 1 Week Disposition Disposition (needs filled in before D/C Order can be placed): Home, Self Care Charges/Coding Visit Charges Inpatient E&M: 82980 Disch Hosp >30min
--- NOTE | 2022-10-14 15:21 | CASEMGMT ---
Pt did not qualify for home oxygen. Plan to dc home today.
--- NOTE | 2022-10-14 16:08 | CASEMGMT ---
Pt did not qualify for home oxygen. DC today.
== END 2022-10-14 15:26 | disposition home or self-care (01) | DRG 190 ==
LOC: ED 15:34 → MS3 16:03
PROVIDERS: Admitting Provider Hospitalist; Emergency Provider Emergency Medicine; PCP Family Medicine; Visit Provider Internal Medicine
DX: J44.1 Chronic obstructive pulmonary disease with (acute) exacerbation (principal); J96.01 Acute respiratory failure with hypoxia; E11.65 Type 2 diabetes mellitus with hyperglycemia; Z79.4 Long term (current) use of insulin; I10 Essential (primary) hypertension; E78.5 Hyperlipidemia, unspecified; I25.10 Atherosclerotic heart disease of native coronary artery without angina pectoris; J20.8 Acute bronchitis due to other specified organisms; J06.9 Acute upper respiratory infection, unspecified; Z87.891 Personal history of nicotine dependence; B97.81 Human metapneumovirus as the cause of diseases classified elsewhere
CPT/HCPCS: 36415; 71045; 80048; 82803; 82962; 83880; 84484; 85025; 85379; 87428; 87633; 87635; 93005; 94640; 94668; 94762; 99252; 99283; J7050; A4216; G0463; U0003; U0005

== ENCOUNTER 2022-12-04 05:48 | Day surgery (SDC) | payer MEDICARE, OTHER, SELFPAY ==
--- NOTE | 2022-12-04 | LES_PTH ---
PATIENT: VELMA BENITEZ [place] [facility] [place][id number] AGE/SX: 72/M ROOM: RE12/04/[address]: Dr. Michele Duong MD : 1950 BED: DIS: 12/04/2022 SPEC #: [id number] RECD: 12/04/22 09:54 STATUS: EDVIN GILLESPIE #: [id number] KEDAR: 12/04/22 00:[address]: Michele Duong DEPT: SURGICAL PATHOLOGY RECD BY: Tara Galloway ENTERED: 12/04/22 10:32 SP TYPE: Lesion OTHR DR: Dr. Velma Lange MD Tissues: A - Skin of face, NOS B - Skin of chest C - Skin of face, NOS Procedures: Surgery Specimen Level IV HEADER OPERATION: Excision squamous cell cancer right lateral forehead PRE-OP DIAGNOSIS: 1.5 cm squamous cell carcinoma scar right lateral forehead by anterior frontal hairline; 6 mm lesion right anterior temporal scalp by hairline; 1.3 cm lesion right chest wall medial to nipple TISSUE SUBMITTED: A - Lesion right anterior temporal scalp by hairline, B - Lesion right chest wall medial to nipple, C - Squamous cell carcinoma scar right lateral forehead by anterior frontal hairline, suture at 12 o?clock MICROSCOPIC DIAGNOSIS A. Skin lesion of right anterior temporal region, shave biopsy: Actinic keratosis. Solar elastosis. B. Skin lesion of right chest wall, shave biopsy: Seborrheic keratosis with focal actinic change. C. Skin lesion of right lateral forehead, biopsy: Actinic change and extensive solar elastosis. No evidence of malignancy. AM:yuliana 12/07/2022 MICROSCOPIC DESCRIPTION Slides are reviewed. GROSS DESCRIPTION A - Received in fixative is one container labeled with the patient's name and designated 6 mm lesion right anterior temporal scalp. The specimen consists of a light laguna shave biopsy of skin measuring 1.0 x 0.9 x 0.2 cm. The specimen is sectioned and totally submitted in one cassette. B - Received in fixative is one container labeled with the patient's name and designated 1.3 cm lesion right chest wall medial to nipple. The specimen consists of a light laguna shave biopsy of skin measuring 1.5 x 1.0 x 0.1 cm. The specimen is sectioned and totally submitted in one cassette. C - Received in fixative is one container labeled with the patient's name and designated 1.5 cm squamous cell carcinoma scar right lateral forehead. The specimen consists of a discoid fragment of excised skin measuring 0.2 cm in diameter and 0.3 cm in thickness. A suture is present along one edge. This edge and corresponding half is inked in blue ink. The opposite half is inked in black ink. The specimen is serially sectioned and totally submitted in one cassette. / AM:yuliana 12/04/2022 TC:5 CPT: 30038 x2
[2022-12-04 06:57] VITALS: BP 117/67; PULSE 66; RESP 16; TEMP 36.6; O2SAT 96; BMI 28.5
[2022-12-04] MEDS: Lactated Ringers 1,000 ML 15 ML IV ×2 (07:05→09:49)
[2022-12-04 07:36] LABS: Bedside Glucose 132 mg/dL (74-106)
[2022-12-04] MEDS: Clindamycin 900 MG/50 ML BAG 75 MG IV (07:41)
[2022-12-04] MEDS: Lidocaine 1% /Epi 1:100 (20ml) 20 ML Vial (08:23)
[2022-12-04] MEDS: Mupirocin Ointment 22gm Tube 1 APPLIC (08:52)
--- NOTE | 2022-12-04 09:38 | OP.PCM_ITS ---
Problems Associated Problem List Diagnoses (1) Squamous cell carcinoma of forehead: (2) Neoplasm of skin of scalp: (3) Neoplasm of skin of chest: (4) Diabetes mellitus: (5) Actinic keratosis of scalp: (6) Former smoker: Report of Operation Date of Procedure: 12/04/22 Pre-Operative Diagnosis: 1. 1.5 cm squamous cell carcinoma scar right lateral forehead by anterior frontal hairline. 2. 6 mm lesion right anterior temporal scalp by hairline. 3. 1.3 cm lesion right chest wall medial to nipple. 4. Scattered actinic damage anterior frontal scalp. 5. Diabetes mellitus. 6. HgbA1c 6.8 in May,. 7. Former smoker. Post-Operative Diagnosis: Same. Surgery/Procedure Performed:: 1. Excision 1.5 cm squamous cell carcinoma scar right lateral forehead by anterior frontal hairline with FTSG reconstruction from right neck (6.25 cm2). 2. Intradermal excision 6 mm lesion right anterior temporal scalp by hairline. 3. Intradermal excision 1.3 cm lesion right chest wall medial to nipple. Description of Surgical Findings:: 72 year old man presents for evaluation for TBSE.? He has concerns about a scabby lesion right lateral forehead by anterior frontal hairline that his PCP performed a punch biopsy on 10/30/22.? Pathology showed it was a squamous cell carcinoma focally extending to deep edge of biopsy.? He also has concerns about lesions on his right anterior temporal scalp by hairline and right chest wall medial to the nipple that have increased in size over the last several months.? He denies fever.? He denies trauma.? He denies recent infection. ? Patient was informed of the risks and complications of the procedure including alternatives to surgery. These were discussed with the patient personally. Patient voices understanding and wishes to proceed. Some of the risks and complications were included in a form from the [employer]. Potential risks and complications included but not inclusive of bleeding, infection, hematoma, bruising, swelling, loss of sensation to skin, partial or complete loss of skin graft, wound breakdown, need for wound care, poor scarring, poor aesthetic outcome, intra operative cardiac or neurologic events, DVT, PE, and reaction to anesthesia. Size of skin graft wound right lateral forehead by anterior frontal hairline - 2.5 x 2.5 cm or 6.25 cm2. Surgeon: Michele Duong MD trommel tender: Akhil Cornell RNFA Type of Anesthesia: General Anesthesiologist: Eddie Obrien MD Specimen's removed: 1. Squamous cell carcinoma scar right lateral forehead by anterior frontal hairline to Pathology. 2. Lesion right anterior temporal scalp by hairline to Pathology. 3. Lesion right chest wall medial to nipple to Pathology. Drains: None. Estimated Blood Loss (mL): 5. Description of Procedure: Patient was taken to OR in supine position and was placed under general anesthesia. The right scalp, face, neck and right chest wall areas were prepped and draped in the usual fashion. SCD's were placed for DVT prophylaxis. Perioperative antibiotics were given intravenously. Using xylocaine with epinephrine, the lesions of the right lateral forehead by anterior frontal hairline, right anterior temporal scalp by hairline, and right chest wall medial to nipple were infiltrated. After waiting 5 minutes for the anesthetic to take effect, the lesions of right anterior temporal scalp by hairline and right chest wall medial to nipple were excised in an intradermal fashion and sent separately to Pathology for analysis to rule out carcinoma. I then marked out a margin for excision of the squamous cell carcinoma scar right lateral forehead by anterior frontal hairline. I used a 6 mm margin in all directions thus making it a 2.7 cm excision. Excision went down into the subcutaneous tissue. Hemostasis was obtained using electrocautery. A suture was marked at 12 oclock position for pathology orientation. The lesion was then sent to Pathology for analysis to rule out carcinoma at the margins. I marked out an ellipse of skin on his right neck and infiltrated the markings with xylocaine with epinephrine. Elliptical incision was made and the skin was elevated at the level of the dermis and any residual subcutaneous tissue was removed thus making it a full thickness skin graft. The skin graft was then placed on the right lateral forehead by anterior frontal hairline wound defect and secured to the skin edges with 5-0 Chromic simple interrupted sutures. 5-0 Chromic sutures were also used for central quilting stabilization. The size of the skin graft wound was 2.7 x 2.7 cm or 7.29 cm2. Xeroform gauze was applied to the skin graft followed by antibiotic ointment and cotton balls soaked in saline and secured to the skin edges with 4- 0 Nylone tie over stent suture dressing. The donor incision right neck was then closed in a layered fashion. Hemostasis was obtained using electrocautery. The deep dermis and subcutaneous tissue was approximated with 5-0 Monocryl interrupted sutures. The skin was approximated with 5-0 Prolene simple interrupted sutures. Antibiotic ointment was applied followed 4x4 gauze and an Op Site dressing. For the two intradermal excisions (right anterior temporal scalp by hairline and right chest wall medial to nipple) hemostasis was obtained using gauze pressure and silver nitrate chemical cauterization. Antibiotic ointment was applied followed by 2x2 gauze and an Op Site dressing. Patient tolerated the procedure well and was sent to PACU in satisfactory condition. Patient will be sent home on antibiotics and pain medication. He will keep his head elevated during the initial postoperative period. He will be on a lifting restriction. Patient will followup in a week for a skin graft wound check and for discussion of the pathology report and for removal of the sutures. Grafts/Implants Used: None. Procedure Start Time: 08:23 Procedure Stop Time: 09:31 Complications None. Admit VTE Documentation VTE Present on Admission: No VTE Mechan Device Prophylaxis: SCD's VTE Pharm Prophylaxis ordered?: No Addendum Addendum: Surgery Charges CPT - 78245 ICD-10 - C44.329, L57.0, E11.9, Z87.891 73773 C44.329, L57.0, E11.9, Z87.891 42892 D49.2, C44.329, L57.0, E11.9, Z87.891 60626 D49.2, C44.329, L57.0, E11.9, Z87.891
[2022-12-04 09:48] VITALS: BP 117/67; BP 98/63; PULSE 66; RESP 16; TEMP 36.4; O2SAT 95
[2022-12-04 10:00] VITALS: BP 117/67; BP 99/63; PULSE 64; RESP 16; O2SAT 95
[2022-12-04 10:15] VITALS: BP 117/67; BP 97/63; PULSE 70; RESP 15; TEMP 36.5; O2SAT 93
--- NOTE | 2022-12-04 11:01 | PCM.DC ---
Discharge Instructions Diet Discharge Diet: Carb Control Diet and - (encourage nutritional supplementation with protein to help the healing process.) Activity Discharge Activity: May Not Drive, May Shower (in 2 days from the neck down. Keep skin graft dressing dry on right forehead. Wash face gently in the sink.) and - (keep head elevated. No heavy lifting.) May resume sexual activity in: 10-14 days Weight Bearing Status: Weight bearing as tolerated Lifting Restrictions: 10 lbs. Keep extremity elevated above heart level: - (elevate head.) Dressing / Incision Call your doctor if your incision/area has: Continuous Slow Oozing, Sudden Increased Bleeding, Increased Redness, Foul Smelling Discharge and Swelling at the incision site Call your doctor if you observe: Fever of 101 or Higher, Coldness, Increased Pain, Shortness of breath, Chest pain, Calf discomfort and Uncontrolled pain Suture Line Care: - (in two days after the operative dressings removed from right temporal scalp, right chest wall by nipple, and skin graft donor incision right neck. Leave the skin graft dressing intact on right lateral forehead by anterior frontal hairline.) Change Dressing in: do not change dressing (i will remove the skin graft operative dressing right lateral forehead by anterior frontal hairline in the office.) Remove Dressing in: 2 days (the right chest wall dressing and the right neck dressing. Leave the skin graft dressing alone on the right lateral forehead by anterior frontal hairline. I will remove the operative skin graft dressing right lateral forehead by anterior frontal hairline.) Cleanse incision/area with: Soap & Water (after the other operative dressings are removed in 2 days (right chest wall and right neck), may shower from the neck down and wash face gently in the sink.) and Keep Dressing Clean & Dry (skin graft dressing right lateral forehead by anterior frontal hairline) Follow Up Care Please Follow Up With: Michele Duong MD When: Thursday December 08, 2022 at 930am. Call [phone] for questions. Test Results: Test results from this visit will be discussed in further detail at your follow-up appointment, if applicable. Discharge Plan Admission Primary Reason for Your Visit: excision squamous cell CA rt lateral forehead by anterior frontal hairline Attending Provider: Michele Duong Primary Care Provider: Maurice Lange Discharge Orders/Prescriptions Prescriptions: New clindamycin HCl [Cleocin HCl] 300 mg capsule 300 mg PO TID Qty: 15 0RF L.acidoph,saliva-B.bif-S.therm [Acidophilus Probiotic Blend] 175 mg capsule 1 cap PO DAILY Qty: 20 0RF oxycodone-acetaminophen [Percocet] 5-325 mg tablet 1 tab PO Q6H PRN (Reason: pain (scale score 7-10)) 5 Days Qty: 20 0RF Rx Instructions: 20 tabs (twenty) Continued atorvastatin 40 mg Tablet 40 mg PO QHS metformin 500 mg Tablet 500 mg PO BID imipramine HCl 50 mg Tablet 50 mg PO QHS carvedilol 6.25 mg Tablet 6.25 mg PO BID Rx Instructions: must administer with a meal/food clonazepam 1 mg Tablet 1 mg PO BID lisinopril 2.5 mg Tablet 2.5 mg PO QHS albuterol sulfate [ProAir HFA] 90 mcg/actuation HFA aerosol inhaler 2 puff inhalation Q6H PRN (Reason: shortness of breath or wheezing) Qty: 8.5 0RF Rx Instructions: use two puffs four times a day for 5 days, then two puffs four times a day as needed multivitamin Tablet 1 tab PO DAILY Referrals / Follow Up: Maurice Lange MD [Primary Care Provider] - Disposition Disposition (needs filled in before D/C Order can be placed): Home, Self Care
[2022-12-04 11:58] VITALS: BP 117/67; BP 87/57; PULSE 73; RESP 16; TEMP 36.3; O2SAT 94
== END 2022-12-04 12:15 | disposition home or self-care (01) ==
LOC: SDC 05:48 → AC 05:49
PROVIDERS: PCP Family Medicine; Referring Provider Surgery; Visit Provider Surgery
PROC: (CPT 11643; principal; 2022-12-04 07:15)
DX: C44.329 Squamous cell carcinoma of skin of other parts of face (principal); E11.9 Type 2 diabetes mellitus without complications; D49.2 Neoplasm of unspecified behavior of bone, soft tissue, and skin; L57.0 Actinic keratosis; F41.0 Panic disorder [episodic paroxysmal anxiety]; Z87.891 Personal history of nicotine dependence; Z79.899 Other long term (current) drug therapy; Z79.84 Long term (current) use of oral hypoglycemic drugs
CPT/HCPCS: 11643; 15240; 11306; 11302; 00300; 82962; 88305; J7120; J2405

== ENCOUNTER → 2023-01-05 | Outpatient (CLI) | payer MEDICARE, OTHER, SELFPAY | END | disposition home or self-care (01) | LOC: LAB 14:30 | PROVIDERS: PCP Family Medicine; Referring Provider Nurse Practitioner Family; Visit Provider Nurse Practitioner Family | DX: Z94.5 Skin transplant status (principal); Z98.890 Other specified postprocedural states; Z85.9 Personal history of malignant neoplasm, unspecified | CPT/HCPCS: 87070; 87075; 87205 ==

== ENCOUNTER 2023-04-09 07:20 | Emergency (ER) | payer MEDICARE, OTHER, SELFPAY ==
[2023-04-09 07:20] VITALS: BP 110/76; PULSE 90; RESP 14; TEMP 36.6; O2SAT 95; BMI 27.0
--- NOTE | 2023-04-09 07:51 | CT_ITS ---
STUDY: CT ABDOMEN AND PELVIS WITH CONTRAST REASON FOR EXAM: Male, 72 years old. abdominal pain RADIATION DOSAGE (If Supplied By Facility): CTDIvol = ( 19.79 ) mGy, DLP = ( 964.32 ) mGycm TECHNIQUE: Transaxial images were obtained from the dome of the diaphragm to the symphysis pubis without oral contrast. IV 100mL Isovue-370 was administered. Sagittal and coronal images were reconstructed. Individualized dose optimization techniques were used for this CT. COMPARISON: None. FINDINGS: Minimal scarring at the left lung base with a small bulla. Coronary artery calcification. There is decreased attenuation of the liver consistent with steatosis. Normal gallbladder and extrahepatic biliary system. Normal spleen. Normal pancreas. Normal bilateral adrenal glands. Normal right kidney. Normal left kidney. Normal visualized stomach. Normal small intestine. There is evidence of a diffuse colitis involving the transverse colon as well as the splenic flexure, descending colon and rectosigmoid colon. There is also evidence of a sigmoid diverticulosis. The appendix is visualized and appears normal. There is extensive atherosclerotic calcification of the abdominal aorta and its major visceral branches, without a demonstrated aneurysm. A marked degree of the calcific plaque is seen at the origin of the superior mesenteric artery. Normal inferior vena cava. Normal retroperitoneum. Normal urinary bladder. Normal abdominal wall. There are diffuse degenerative changes of the visualized lumbar spine. CT/Abdomen/Pelvis W IV Cont ONLY IMPRESSION: Colitis involving the transverse colon as well as the splenic flexure, descending colon and rectosigmoid colon. Marked degree of the atherosclerotic calcification of the abdominal aorta as well as the origin of the superior mesenteric artery. Ischemic changes in the territory of the superior mesenteric artery should be ruled out. Electronically Signed: Ramon Yepez MD at 8:57 EDT ,
--- NOTE | 2023-04-09 07:53 | EX.ED.DYSGE1 ---
HPI History of Present Illness Chief Complaint: Abd Pain Informant: patient and spouse/S.O. Narrative Narrative: 72-year-old male presenting to the emergency room with a chief complaint of abdominal pain and diarrhea. Symptoms began last night. He states yesterday he went to the [facility] and had a large cob solid. He was doing well until around 2200 hrs. States that he began to have frequent bowel movements. He states initially started off firm with a lot of cramping and has progressed to diarrhea. A couple episodes during the night resulted in near syncope while having significant abdominal cramping and sitting on the commode. He states that he has not passed any blood. He notes a bout of colitis in the year 2018 while on vacation in [place]. He had a follow-up colonoscopy and states that his colitis was treated with antibiotics and he has not had a recurrence. He is taking metformin since the spring for diabetes. Otherwise no new medications. feels fine. He notes initially he was having upper abdominal pain when he would take a deep breath but that has resolved and now he has pain in the lower abdomen. [facility] Medical History Actinic keratosis Actinic keratosis of scalp Allergies Cardiology follow-up encounter COPD (chronic obstructive pulmonary disease) with emphysema Diabetes mellitus Easy bruising Former smoker High cholesterol History of echocardiogram History of stress test History of torsion of testis Neoplasm of skin of chest Neoplasm of skin of scalp Panic attacks Squamous cell carcinoma of forehead Wears dentures Wears glasses Wears partial dentures Home Medications atorvastatin 40 mg tablet 40 mg PO QHS 10/10/22 [History Last Taken 10/09/22] carvedilol 6.25 mg tablet 6.25 mg PO BID 10/10/22 [History Last Taken 12/04/22 04:00] clonazepam 1 mg tablet 1 mg PO BID PANIC ATTACKS 10/10/22 [History Last Taken 12/04/22 04:00] imipramine HCl 50 mg tablet 50 mg PO QHS PANIC ATTACKS 10/10/22 [History Last Taken 10/09/22] lisinopril 2.5 mg tablet 2.5 mg PO QHS HTN 10/10/22 [History Last Taken 10/09/22] metformin 500 mg tablet 500 mg PO BID 10/10/22 [History Last Taken 10/10/22] albuterol sulfate 90 mcg/actuation aerosol inhaler (ProAir HFA) 2 puff inhalation Q6H PRN shortness of breath or wheezing #8.5 grams 10/14/22 [Rx Last Taken Unknown] multivitamin 1 tab PO DAILY SUPPLEMENT 11/30/22 [History Last Taken Unknown] amoxicillin 875 mg-potassium clavulanate 125 mg tablet 875 mg (0.875 x 875-125 mg) PO Q12H #20 TABLETS 04/09/23 [Rx Last Taken Unknown] hydrocodone-acetaminophen 5-325mg 5mg-325mg 1 tab PO Q6H PRN PRN Pain 3 days #10 TABLETS 04/09/23 [Rx Last Taken Unknown] Allergy/AdvReac Type Severity Reaction Status Date / Time No Known Allergies Allergy Verified 04/09/23 07:22 Family History Other Cancer High cholesterol Hypertension Surgical History History of cardiac catheterization History of colonoscopy History of detached retina repair History of hernia repair History of skin graft History of squamous cell carcinoma excision Social History Smoking Status: Former smoker alcohol intake: never substance use type: does not use additional social history: does not take aspirin does not take ibuprofen ROS ROS ED Constitutional Constitutional ED: Denies chills, fever(s) or weight loss Eyes Eyes: Denies change in vision or diplopia ENT ENT ED: Denies ear pain, rhinorrhea or sore throat Cardiovascular Cardiovascular: Denies chest pain, orthopnea, palpitations or racing heartbeat Respiratory/Chest Respiratory/Chest: Denies cough, dyspnea or orthopnea Gastrointestinal Gastrointestinal: Reports abdominal pain and diarrhea; Denies melena, nausea or vomiting Genitourinary Genitourinary ED: Denies dysuria, hematuria or urinary frequency Musculoskeletal Musculoskeletal: Denies arthralgias, back pain, myalgias or neck pain Integumentary Denies abscess or rash Neurologic Neurologic: Denies headache(s) or weakness Psychiatric Psychiatric: Denies anxiety, depression, suicidal ideation or suicidal thoughts Endocrine Endocrinology: Denies polydipsia, polyphagia or polyuria Allergic/Immunologic Allergic/Immunologic ED: Denies mouth swelling, tongue swelling or urticaria EXAM Physical Exam Const Vital Signs: 04/09/23 07:20 Temperature 97.9 F Temperature Source Temporal Pulse Rate 90 Respiratory Rate 14 Blood Pressure 110/76 Blood Pressure Mean 87 Pulse Ox 95 Oxygen Delivery Method Room Air Positive well nourished and well developed General Appearance ED: well developed HEENT Reports normocephalic, head/scalp atraumatic and moist mucous membranes Eyes PERRL and EOMs intact bilaterally Neck no lymphadenopathy, supple and no JVD Resp normal respiratory effort and clear to auscultation bilaterally Cardio regular rate, regular rhythm and no murmurs GI Inspection: Negative for abdominal distention Auscultation: normoactive bowel sounds Palpation: soft and tender LLQ and suprapubic; Negative for guarding or rebound tenderness present Back/Spine no CVA tenderness and normal ROM Extremity normal to inspection General Extremety ED: Negative for edema General Extremity: Negative for edema Neuro oriented x3 and CN's II-XII intact bilaterally Sensorium / Orientation: alert Motor Exam: strength 5/5 throughout Psych mental status grossly normal Mood & Affect: Negative for depressed or tearful Skin no rashes or lesions noted and no wounds MDM MDM MDM Narrative Medical decision making narrative: The patient's white count elevated 12.9. Hemoglobin is 16.1. Creatinine 1.19. CT abdomen pelvis demonstrates inflammatory changes of the transverse descending and sigmoid colon. There is noted to be some atherosclerotic disease. Given the distribution of his colitis I think ischemic colitis due to the SMA is not likely. He received a dose of Zosyn. At this point I think the patient can be treated at home. I will place him on Augmentin. We talked about potential complications of colitis as well as the need for further evaluation by gastroenterology. We talked about return instructions and he and his note understanding. I will also write for some pain medication should he require it. Lab Data Attestation: I reviewed the patient's lab results. Labs: Laboratory Results - last 24 hr 04/09/23 07:28 WBC 12.9 H RBC 4.86 Hgb 16.1 Hct 47.5 MCV 97.7 H MCH 33.1 H MCHC 33.9 RDW Std Deviation 46.8 H RDW Coeff of Yuliya 13.2 Plt Count 198 MPV 11.8 Immature Gran % (Auto) 0.500 Neut % (Auto) 77.0 H Lymph % (Auto) 12.1 L [place] % (Auto) 10.0 Eos % (Auto) 0.2 Baso % (Auto) 0.2 Absolute Neuts (auto) 9.9 H Absolute Lymphs (auto) 1.55 Nucleated RBC % 0 Sodium 135 L Potassium 4.4 Chloride 103 Carbon Dioxide 26.0 Anion Gap 6 BUN 22 H Creatinine 1.19 Estim Creat Clear Calc 55.29 Est GFR (MDRD) Af Amer 77 Est GFR (MDRD) Non-Af 64 BUN/Creatinine Ratio 18.5 Glucose 166 H Calcium 9.0 Total Bilirubin 0.70 AST 23 ALT 34 Alkaline Phosphatase 98 Total Protein 6.9 Albumin 3.9 Globulin 3.0 Albumin/Globulin Ratio 1.3 Radiography Diagnostic Testing: Clinical Impression(s) from Imaging Studies Abdomen/Pelvis CT 04/09/23 07:51 IMPRESSION: Colitis involving the transverse colon as well as the splenic flexure, descending colon and rectosigmoid colon. Marked degree of the atherosclerotic calcification of the abdominal aorta as well as the origin of the superior mesenteric artery. Ischemic changes in the territory of the superior mesenteric artery should be ruled out. Electronically Signed: Ramon Yepez MD at 8:57 EDT , Discharge Plan Triage Chief Complaint: Abd Pain ED Provider: Jamie Brewer Dx/Rx/DC Orders Clinical Impression: Colitis Instructions: ED Understanding Colitis Prescriptions: New hydrocodone-acetaminophen [hydrocodone-acetaminophen] 5-325 mg tablet 1 tab PO Q6H PRN PRN (Reason: Pain) 3 Days Qty: 10 0RF amoxicillin-pot clavulanate [amoxicillin-pot clavulanate] 875-125 mg tablet 875 mg PO Q12H Qty: 20 0RF No Action atorvastatin 40 mg Tablet 40 mg PO QHS metformin 500 mg Tablet 500 mg PO BID imipramine HCl 50 mg Tablet 50 mg PO QHS carvedilol 6.25 mg Tablet 6.25 mg PO BID Rx Instructions: must administer with a meal/food clonazepam 1 mg Tablet 1 mg PO BID lisinopril 2.5 mg Tablet 2.5 mg PO QHS albuterol sulfate [ProAir HFA] 90 mcg/actuation HFA aerosol inhaler 2 puff inhalation Q6H PRN (Reason: shortness of breath or wheezing) Qty: 8.5 0RF Rx Instructions: use two puffs four times a day for 5 days, then two puffs four times a day as needed multivitamin Tablet 1 tab PO DAILY Primary Care Provider: Maurice Lange Referrals: Maurice Lange MD [Primary Care Provider] - 1-2 Weeks Major Boyle DO [Med Staff - Active Staff] - (Call to arrange gastroenterology follow-up) Disposition Disposition: Home, Self Care
[2023-04-09 08:04] LABS: Absolute Lymphocyte Count 1.55 X10^3/uL (0.83-4.51); Absolute Neutrophil Count 9.9 X10^3/uL (2.0-7.7); Basophil# 0.03 X10^3/uL; Basophil% 0.2 % (0-1); Eosinophil# 0.02 X10^3/uL; Eosinophils% 0.2 % (0-5); Hematocrit 47.5 % (40-54); Hemoglobin 16.1 g/dL (13.0-16.5); Lymphocyte # 1.55 X10^3/ul (0.83-4.51); Lymphocyte % 12.1 % (19-41); Mean Corp Hgb Conc 33.9 g/dL (32-36); Mean Corpuscular Hgb 33.1 pg (27.0-32.0); Mean Corpuscular Volume 97.7 fL (80-94); Mean Platelet Vol. 11.8 fl (6.2-12.0); Monocyte# 1.28 X10^3/uL; NRBC Flagged by Analyzer 0 % (0-5); Neutrophil # 9.92 X10^3/uL (2.7-7.7); Platelet Count 198 K/mm3 (150-450); RBC Distribution Width CV 13.2 % (11.6-14.6); RBC Distribution Width SD 46.8 fl (35.1-43.9); Red Blood Count 4.86 M/mm3 (4.6-6.2); White Blood Count 12.9 K/mm3 (4.4-11.0)
[2023-04-09 08:18] LABS: ALB/GLOB Ratio 1.3 RATIO (0.9-2.4); AST(SGOT) 23 U/L (15-37); Alanine Aminotransfer ALT/SGPT 34 U/L (16-61); Albumin, Serum 3.9 g/dL (3.2-5.0); Alkaline Phosphatase 98 U/L (45-117); Anion Gap 6 (5-15); BUN 22 mg/dL (7-18); BUN/Creat Ratio 18.5 RATIO (10-20); Chloride 103 mmol/L (98-107); Creatinine, Serum 1.19 mg/dL (0.70-1.30); EST Glomerular Filtration Rate 64 mL/min (>60); Est Glom Filt Rate - Afr Amer 77 mL/min (>60); Estimated Creatinine Clearance 55.29 ml/min; Glucose 166 mg/dL (74-106); Potassium 4.4 mmol/L (3.5-5.1); Protein, Total 6.9 g/dL (6.4-8.2); Sodium Level 135 mmol/L (136-145)
[2023-04-09] MEDS: Piperacil/Tazobactam 4.5 GM in 0.9% Normal Saline (100mL MB+) 100 ML IV (09:10)
[2023-04-09 09:20] VITALS: RESP 18
== END 2023-04-09 10:11 | disposition home or self-care (01) ==
PROVIDERS: Emergency Provider Emergency Medicine; PCP Family Medicine; Visit Provider Emergency Medicine
DX: K52.9 Noninfective gastroenteritis and colitis, unspecified (principal); J44.9 Chronic obstructive pulmonary disease, unspecified; E11.9 Type 2 diabetes mellitus without complications; Z87.891 Personal history of nicotine dependence; Z79.84 Long term (current) use of oral hypoglycemic drugs; E78.00 Pure hypercholesterolemia, unspecified; Z79.899 Other long term (current) drug therapy; F41.0 Panic disorder [episodic paroxysmal anxiety]; Z85.828 Personal history of other malignant neoplasm of skin
CPT/HCPCS: 74177; 80053; 85025; 96365; 99282; Q9967; A4216

== ENCOUNTER 2024-02-15 12:07 | Inpatient (IN) | payer MEDICARE, OTHER, SELFPAY ==
[2024-02-15] VITALS (17 sets, daily range): BP systolic 103–125; BP diastolic 61–87; PULSE 68–92; RESP 16–24; TEMP 36.2–36.8; O2SAT 86–98; BMI 25.9; BMI 25.5
--- NOTE | 2024-02-15 12:19 | EKG12_ITS ---
Test Reason : SOB Blood Pressure : / mmHG Vent. Rate : 077 BPM Atrial Rate : 077 BPM P-R Int : 138 ms QRS Dur : 078 ms QT Int : 376 ms P-R-T Axes : 039 -21 069 degrees QTc Int : 425 ms Sinus rhythm with marked sinus arrhythmia with frequent Premature ventricular complexes Nonspecific T wave abnormality Abnormal ECG Confirmed by JUDIE MACK, GAGE ([id number]), tape editor PAWAN NUNEZ ([id number]) on 02/18/2024 10:16:55 AM Referred By: Confirmed By:SANTO DIMAS MD
--- NOTE | 2024-02-15 12:22 | ED.VIS.DYS ---
HPI History of Present Illness Chief Complaint: Shortness of Breath Detail of Chief Complaint: Shortness of breath Informant: patient and spouse/S.O. Narrative Narrative: Patient presents with shortness of breath that started a week ago. Patient at the time was traveling with his to the [facility]. They stopped in the emergency department in [place] and was diagnosed with COVID. He was started on cefpodoxime and prednisone. Initially got a little bit better but started feeling more short of breath again. Patient continues to cough and is bringing up some clear phlegm. He denies fevers. He denies chest pain. No history of PE or DVT. Patient does have history of COPD but does not wear home O2. [facility] Medical History Actinic keratosis Actinic keratosis of scalp Allergies Cardiology follow-up encounter COPD (chronic obstructive pulmonary disease) with emphysema Diabetes mellitus Easy bruising Former smoker High cholesterol History of echocardiogram History of stress test History of torsion of testis Neoplasm of skin of chest Neoplasm of skin of scalp Panic attacks Squamous cell carcinoma of forehead Wears dentures Wears glasses Wears partial dentures Home Medications ?Medication ?Instructions ?Recorded ?Last Taken ?Type atorvastatin 40 mg tablet 40 mg PO QHS 10/10/22 10/09/22 History carvedilol 6.25 mg tablet 6.25 mg PO BID 10/10/22 12/04/22 04:00 History clonazepam 1 mg tablet 1 mg PO BID PANIC ATTACKS 10/10/22 12/04/22 04:00 History imipramine HCl 50 mg tablet 50 mg PO QHS PANIC ATTACKS 10/10/22 10/09/22 History lisinopril 2.5 mg tablet 2.5 mg PO QHS HTN 10/10/22 10/09/22 History albuterol sulfate 90 mcg/actuation 2 puff inhalation Q6H PRN 10/14/22 Unknown Rx aerosol inhaler (ProAir HFA) shortness of breath or wheezing #8.5 grams multivitamin 1 tab PO DAILY SUPPLEMENT 11/30/22 Unknown History amoxicillin 875 mg-potassium 875 mg PO Q12H #20 TABLETS 04/09/23 Unknown Rx clavulanate 125 mg tablet hydrocodone-acetaminophen 5-325mg 1 tab PO Q6H PRN PRN Pain 3 days 04/09/23 Unknown Rx 5mg-325mg #10 TABLETS cefpodoxime 200 mg tablet 200 mg PO Q12H 02/15/24 Unknown History metformin 500 mg tablet,extended 500 mg PO BID 02/15/24 Unknown History release 24 hr Allergy/AdvReac Type Severity Reaction Status Date / Time No Known Allergies Allergy Verified 04/09/23 07:22 Family History Other Cancer High cholesterol Hypertension Surgical History History of cardiac catheterization History of colonoscopy History of detached retina repair History of hernia repair History of skin graft History of squamous cell carcinoma excision Social History Smoking Status: Former smoker alcohol intake: never substance use type: does not use additional social history: does not take aspirin does not take ibuprofen ROS ROS ED Review of Systems ROS Unobtainable: other Constitutional Constitutional ED: Reports lethargy; Denies chills, fever(s), sweats or weight loss Eyes Eyes: Denies blurry vision, change in vision or diplopia ENT ENT ED: Denies rhinorrhea or sore throat Cardiovascular Cardiovascular: Denies chest pain, orthopnea or racing heartbeat Respiratory/Chest Respiratory/Chest: Reports cough, dyspnea and dyspnea on exertion; Denies orthopnea or sputum Gastrointestinal Gastrointestinal: Denies abdominal pain, diarrhea, nausea or vomiting Genitourinary Genitourinary ED: Denies dysuria, hematuria or urinary frequency Musculoskeletal Musculoskeletal: Denies arthralgias, back pain, myalgias or neck pain Integumentary Denies abscess, Abrasions or rash Neurologic Neurologic: Denies headache(s) or weakness Psychiatric Psychiatric: Denies anxiety, depression or suicidal thoughts Endocrine Endocrinology: Denies polydipsia, polyphagia or polyuria Hematologic/Lymphatic Hematologic/Lymphatic: Denies easy bleeding, easy bruising or lymphadenopathy Allergic/Immunologic Allergic/Immunologic ED: Denies mouth swelling, tongue swelling or urticaria EXAM Physical Exam Const Vital Signs: 02/15/24 12:08 02/15/24 12:10 02/15/24 12:17 Temperature 97.7 F L Temperature Source Temporal Pulse Rate 86 Respiratory Rate 24 H Respiratory Effort Short of Breath Labored Respiratory Pattern Blood Pressure 116/62 Blood Pressure Mean 80 Pulse Ox 86 93 Oxygen Delivery Method Room Air Nasal Cannula Nasal Cannula Oxygen Flow Rate (L/min) 2 2 02/15/24 12:35 02/15/24 12:36 02/15/24 13:08 Temperature Temperature Source Pulse Rate 75 77 Respiratory Rate 16 17 Respiratory Effort Respiratory Pattern Normal Blood Pressure 108/67 Blood Pressure Mean 80 Pulse Ox 95 94 Oxygen Delivery Method Nasal Cannula Nasal Cannula Oxygen Flow Rate (L/min) 3 2 02/15/24 14:00 02/15/24 14:34 02/15/24 14:36 Temperature 98.2 F 98.2 F Temperature Source Oral Pulse Rate 72 73 68 Respiratory Rate 16 16 Respiratory Effort Respiratory Pattern Blood Pressure 103/62 105/64 105/64 Blood Pressure Mean 75 77 77 Pulse Ox 94 95 95 Oxygen Delivery Method Room Air Nasal Cannula Oxygen Flow Rate (L/min) 2 2 Positive well nourished and well developed General Appearance ED: well developed and NAD HEENT Reports TM's clear and moist mucous membranes normocephalic and atraumatic; Negative for trauma or tenderness Tympanic Membrane ED: Yes TM's clear Eyes PERRL and EOMs intact bilaterally General Eye ED: Negative for pale conjunctiva or scleral icterus Neck no lymphadenopathy, supple and no JVD General: Negative for tenderness Chest Wall inspection of chest normal and palpation of chest normal Chest: Negative for tenderness Resp normal respiratory effort and clear to auscultation bilaterally Effort and Inspection: Negative for respiratory distress or pain with movement Auscultation: wheezes; Negative for rhonchi or diminished lung sounds Cardio regular rate, regular rhythm, S1 normal heart sound, S2 normal heart sound and no murmurs Peripheral Pulses: pulses 2+ throughout GI normal to inspection, nondistended, normoactive bowel sounds, soft to palpation, non-tender, non-distended and no masses Back/Spine no CVA tenderness and no thoracic nor lumbar tenderness Extremity normal to inspection General Extremety ED: Negative for edema General Extremity: Negative for edema Neuro oriented x3, CN's II-XII intact bilaterally, no sensory deficits noted and gait normal Sensorium / Orientation: awake, alert, oriented to person, oriented to place and oriented to time Motor Exam: strength 5/5 throughout and strength abnormal Psych mental status grossly normal Skin no rashes or lesions noted and no wounds MDM MDM MDM Narrative Medical decision making narrative: Patient presents with complaint of shortness of breath recently diagnosed with COVID-19 a week ago. On cefpodoxime currently and prednisone has been finished. In the differential would be PE given recent travel and COVID history. Also entertain possibility of bacterial pneumonia. Entertain possibility of pneumothorax which I feel is less likely. COPD exacerbation in the differential also. IV line will be established. Patient was ordered DuoNeb aerosol. CBC with differential showing a 5.5 with hemoglobin 14.9 and platelet count of 156. Chemistries unremarkable. D-dimer elevated 1.26. Lactate also elevated 2.7. Troponin was normal at 13. EKG obtained on arrival shows sinus rhythm with ventricular rate of [address] changes. Given patient history of recent COVID diagnosis and elevated D-dimer obtained CTA of the chest to rule out PE. Lab Data Attestation: I reviewed the patient's lab results. Labs: Laboratory Results - last 24 hr 02/15/24 12:39 WBC 5.5 RBC 4.55 L Hgb 14.9 Hct 42.9 MCV 94.3 H MCH 32.7 H MCHC 34.7 RDW Std Deviation 47.1 H RDW Coeff of Yuliya 13.6 Plt Count 156 MPV 10.9 Immature Gran % (Auto) 0.400 Neut % (Auto) 50.1 Lymph % (Auto) 33.0 [place] % (Auto) 14.7 H Eos % (Auto) 1.4 Baso % (Auto) 0.4 Absolute Neuts (auto) 2.8 Absolute Lymphs (auto) 1.82 Nucleated RBC % 0 D-Dimer Quant (PE/DVT) 1.26 H* Sodium 134 L Potassium 4.0 Chloride 97 L Carbon Dioxide 29.0 Anion Gap 8 BUN 12 Creatinine 1.21 Estim Creat Clear Calc 53.56 Est GFR (MDRD) Af Amer 75 Est GFR (MDRD) Non-Af 62 BUN/Creatinine Ratio 9.9 L Glucose 123 H Lactic Acid 2.7 H* Calcium 9.1 Troponin I High Sens 13 Radiography Diagnostic Testing: Clinical Impression(s) from Imaging Studies Chest X-Ray 02/15/24 12:48 IMPRESSION: Hyperinflation. Increased interstitial markings at the lung bases worse on the right side with blunting of the right costophrenic angle. Findings suggests either superimposed atelectasis and/or infiltrate on chronic right basilar scarring. Electronically Signed: Ramon Yepez MD at 13:03 EDT , Chest CTA 02/15/24 13:12 IMPRESSION: Hyperinflation and emphysematous changes with bibasilar scarring and mild basilar atelectasis. No evidence of pulmonary embolism. Electronically Signed: Ramon Yepez MD at 14:06 EDT , 1 view chest x-ray obtained interpreted by myself as mild increased markings in the lung bases with no pneumothorax or obvious infiltrate. Radiology in agreement and felt there was findings suggesting superimposed atelectasis and or infiltrate on chronic right basilar scarring. EKG Initial EKG: Attestation: I personally reviewed and interpreted this EKG as follows: Comments: Sinus rhythm with ventricular rate of [address] changes and occasional PVCs Discharge Plan Dx/Rx/DC Orders Clinical Impression: Acute dyspnea, Hypoxemia, COVID-19, COPD exacerbation Disposition Disposition: Acute Care [facility]
[2024-02-15] MEDS: Ipratropium/Albuterol Sulfate 3 ML AMPUL.NEB INHALATION (12:28)
--- NOTE | 2024-02-15 12:48 | RAD_ITS ---
STUDY: X-RAY CHEST REASON FOR EXAM: Male, 73 years old. Dyspnea TECHNIQUE: Single AP portable view of the chest. COMPARISON: Comparison is made with prior study of October 10, 2022. FINDINGS: EKG electrodes are seen. Hyperinflation. Emphysematous changes. Increased interstitial markings at the lung bases worse on the right side. At this time, there is confluence of markings at the right lung base with blunting of the right costo phrenic angle. Superimposed infiltration and/or atelectasis should be ruled out. Normal size heart. Normal mediastinum and senthil. Normal visualized pulmonary arteries. There is atherosclerotic calcification of the aortic arch with tortuosity. There are diffuse degenerative changes of the visualized thoracic spine. Normal visualized ribs, clavicles, and shoulders. There is no demonstrated abnormality of the visualized soft tissue structures of the upper abdomen. RAD/Chest 1 View (Portable) IMPRESSION: Hyperinflation. Increased interstitial markings at the lung bases worse on the right side with blunting of the right costophrenic angle. Findings suggests either superimposed atelectasis and/or infiltrate on chronic right basilar scarring. Electronically Signed: Ramon Yepez MD at 13:03 EDT ,
[2024-02-15 12:50] LABS: Absolute Lymphocyte Count 1.82 X10^3/uL (0.83-4.51); Absolute Neutrophil Count 2.8 X10^3/uL (2.0-7.7); Basophil# 0.02 X10^3/uL; Basophil% 0.4 % (0-1); Eosinophil# 0.08 X10^3/uL; Eosinophils% 1.4 % (0-5); Hematocrit 42.9 % (40-54); Hemoglobin 14.9 g/dL (13.0-16.5); Lymphocyte # 1.82 X10^3/ul (0.83-4.51); Mean Corp Hgb Conc 34.7 g/dL (32-36); Mean Corpuscular Hgb 32.7 pg (27.0-32.0); Mean Corpuscular Volume 94.3 fL (80-94); Mean Platelet Vol. 10.9 fl (6.2-12.0); Monocyte# 0.81 X10^3/uL; Monocyte% 14.7 % (0-10); NRBC Flagged by Analyzer 0 % (0-5); Neutrophil # 2.77 X10^3/uL (2.7-7.7); Neutrophil % 50.1 % (47-70); Platelet Count 156 K/mm3 (150-450); RBC Distribution Width CV 13.6 % (11.6-14.6); RBC Distribution Width SD 47.1 fl (35.1-43.9); Red Blood Count 4.55 M/mm3 (4.6-6.2); White Blood Count 5.5 K/mm3 (4.4-11.0)
[2024-02-15] MEDS: 0.9% Normal Saline (1000mL) 1,000 ML 150 ML IV (13:04)
[2024-02-15 13:11] LABS: D-Dimer Quantitative (DVT/PE) 1.26 FEU/ug/m (0.27-0.49)
[2024-02-15 13:12] LABS: Anion Gap 8 (5-15); BUN 12 mg/dL (7-18); BUN/Creat Ratio 9.9 RATIO (10-20); Calcium,Total 9.1 mg/dL (8.5-10.1); Chloride 97 mmol/L (98-107); Creatinine, Serum 1.21 mg/dL (0.70-1.30); EST Glomerular Filtration Rate 62 mL/min (>60); Est Glom Filt Rate - Afr Amer 75 mL/min (>60); Estimated Creatinine Clearance 53.56 ml/min; Glucose 123 mg/dL (74-106); Sodium Level 134 mmol/L (136-145); Troponin-I HS 13 pg/mL (3.0-78.0)
--- NOTE | 2024-02-15 13:12 | CT_ITS ---
STUDY: CTA CHEST REASON FOR EXAM: Male, 73 years old. Covid, elevated d-dimer, hypoxia RADIATION DOSAGE (If Supplied By Facility): CTDIvol = ( 8.60 ) mGy, DLP = ( 361.82 ) mGycm TECHNIQUE: The examination was performed with the intravenous administration of IV 100mL Isovue-370. Post-processing of the angiographic images was performed, with multiplanar reformation and 3D reconstruction. Individualized dose optimization techniques were used for this CT. COMPARISON: Comparison is made with prior chest radiograph done earlier in the day. FINDINGS: Normal enhancement of the main pulmonary artery and right and left pulmonary arteries. Normal enhancement of the bilateral peripheral pulmonary arteries. There is no demonstrated pulmonary embolism. There is atherosclerotic calcification of the aortic arch with tortuosity. There is no demonstrated aortic dissection. Normal heart and pericardium. Normal mediastinum. Normal hilar regions. Normal visualized trachea and bronchi. The lungs are hyper expanded, with flattening of the hemidiaphragms. Emphysematous changes with centrilobular emphysema worse in the upper lobes more prominent on the right side. Bullous change in the left lower lobe. Increased interstitial markings at the lung bases suggestive of a linear scarring and bibasilar atelectasis. Normal pleura. Normal chest wall structures. There are degenerative changes of thoracic spine. Extensive atherosclerosis of the visualized aorta and superior mesenteric artery. Small hiatal hernia. CT/CTA Chest W/WO Contrast IMPRESSION: Hyperinflation and emphysematous changes with bibasilar scarring and mild basilar atelectasis. No evidence of pulmonary embolism. Electronically Signed: Ramon Yepez MD at 14:06 EDT ,
[2024-02-15 13:24] LABS: Lactic Acid 2.7 mmol/L (0.4-1.9)
--- NOTE | 2024-02-15 13:25 | ED.RN ---
lactic 2.7. aware
[2024-02-15] MEDS: MethylPREDNISolone 125 MG/2 ML Vial IV (14:25)
--- NOTE | 2024-02-15 14:47 | NURSING ---
MED SURG [facility] DYSPNEA, HYPOXEMIA, COVID 19, COPD EXAC
--- NOTE | 2024-02-15 15:09 | HP.PCM.HOS_ITS ---
HPI - General General Date of Admission: 02/15/24 Date of Service: 02/15/24 Chief Complaint: Increased SOB HPI Narrative VELMA BENITEZ, is a 73-year-old male history of COPD, diabetes, hypertension, anxiety who presented to [facility] ED 02/15/2024 with increasing shortness of breath over the past day. Initially had shortness of breath 8 days ago when [place] and went to a hospital in [place] the next day and tested positive for COVID, got prednisone and antibiotics and had initially improved but has since again worsened since yesterday. In ED was 86% on room air, no PE, workup otherwise unremarkable aside from COVID still being positive. Given hypoxia hospitalist contacted for admission. Patient evaluated at bedside and he confirms this history. He reports he had been having increasing cough with clear sputum more so yesterday than today and the increasing shortness of breath over the past couple days, slight headache this morning, no other acute complaints. No smoking or alcohol use [facility] Medical History Actinic keratosis Actinic keratosis of scalp Allergies Cardiology follow-up encounter COPD (chronic obstructive pulmonary disease) with emphysema Diabetes mellitus Easy bruising Former smoker High cholesterol History of echocardiogram History of stress test History of torsion of testis Neoplasm of skin of chest Neoplasm of skin of scalp Panic attacks Squamous cell carcinoma of forehead Wears dentures Wears glasses Wears partial dentures Home Medications ?Medication ?Instructions ?Recorded ?Last Taken ?Type atorvastatin 40 mg tablet 40 mg PO QHS 10/10/22 10/09/22 History carvedilol 6.25 mg tablet 6.25 mg PO BID 10/10/22 12/04/22 04:00 History clonazepam 1 mg tablet 1 mg PO BID PANIC ATTACKS 10/10/22 12/04/22 04:00 History imipramine HCl 50 mg tablet 50 mg PO QHS PANIC ATTACKS 10/10/22 10/09/22 History lisinopril 2.5 mg tablet 2.5 mg PO QHS HTN 10/10/22 10/09/22 History albuterol sulfate 90 mcg/actuation 2 puff inhalation Q6H PRN 10/14/22 Unknown Rx aerosol inhaler (ProAir HFA) shortness of breath or wheezing #8.5 grams multivitamin 1 tab PO DAILY SUPPLEMENT 11/30/22 Unknown History amoxicillin 875 mg-potassium 875 mg PO Q12H #20 TABLETS 04/09/23 Unknown Rx clavulanate 125 mg tablet hydrocodone-acetaminophen 5-325mg 1 tab PO Q6H PRN PRN Pain 3 days 04/09/23 Unknown Rx 5mg-325mg #10 TABLETS cefpodoxime 200 mg tablet 200 mg PO Q12H 02/15/24 Unknown History metformin 500 mg tablet,extended 500 mg PO BID 02/15/24 Unknown History release 24 hr Allergy/AdvReac Type Severity Reaction Status Date / Time No Known Allergies Allergy Verified 04/09/23 07:22 Family History Other Cancer High cholesterol Hypertension Surgical History History of cardiac catheterization History of colonoscopy History of detached retina repair History of hernia repair History of skin graft History of squamous cell carcinoma excision Social History Smoking Status: Former smoker alcohol intake: never substance use type: does not use additional social history: does not take aspirin does not take ibuprofen ROS ROS Narrative General: Denies fever/chills HENT: Denies headache, denies stuffy nose, denies sore throat EYES: Denies changes in vision Resp: Has had increased cough and shortness of breath Cardiac: Denies chest pain GI: Denies abdominal pain, denies changes in bowel, denies nausea/vomiting : Denies changes in urination Extremity: Denies swelling MSK: Denies weakness Neuro: Denies any numbness/tingling Heme: Denies any bleeding or bruising Skin: Denies rashes Psychiatric: No complaints voiced Vital Signs Vital Signs Vital Signs: 02/15/24 12:08 02/15/24 12:10 02/15/24 12:17 Temperature 97.7 F L Temperature Source Temporal Pulse Rate 86 Respiratory Rate 24 H Respiratory Effort Short of Breath Labored Respiratory Pattern Blood Pressure 116/62 Blood Pressure Mean 80 Pulse Ox 86 93 Oxygen Delivery Method Room Air Nasal Cannula Nasal Cannula Oxygen Flow Rate (L/min) 2 2 02/15/24 12:35 02/15/24 12:36 02/15/24 13:08 Temperature Temperature Source Pulse Rate 75 77 Respiratory Rate 16 17 Respiratory Effort Respiratory Pattern Normal Blood Pressure 108/67 Blood Pressure Mean 80 Pulse Ox 95 94 Oxygen Delivery Method Nasal Cannula Nasal Cannula Oxygen Flow Rate (L/min) 3 2 02/15/24 14:00 02/15/24 14:34 02/15/24 14:36 Temperature 98.2 F 98.2 F Temperature Source Oral Pulse Rate 72 73 68 Respiratory Rate 16 16 Respiratory Effort Respiratory Pattern Blood Pressure 103/62 105/64 105/64 Blood Pressure Mean 75 77 77 Pulse Ox 94 95 95 Oxygen Delivery Method Room Air Nasal Cannula Oxygen Flow Rate (L/min) 2 2 02/15/24 15:00 Temperature Temperature Source Pulse Rate 92 Respiratory Rate 16 Respiratory Effort Respiratory Pattern Blood Pressure 115/76 Blood Pressure Mean 89 Pulse Ox 92 Oxygen Delivery Method Nasal Cannula Oxygen Flow Rate (L/min) 2 Weight Weight: 79.696 kg Body Mass Index (BMI) 25.9 Physical Exam Narrative General: Alert, oriented, no apparent distress HEENT: Atraumatic, normocephalic Eyes: Anicteric, normal conjunctiva, extraocular movements grossly intact Neck: Supple Respiratory: Somewhat diminished airflow, scattered wheezes, normal respiratory effort Cardiovascular: Sinus arrhythmia noted GI: Soft, nontender, nondistended Extremities: No edema Musculoskeletal: Moving all extremities Neuro: No overt focal neurological deficits Skin: No rashes appreciated Psych: Cooperative Results Lab / Micro Data 02/15/24 12:39 02/15/24 12:39 Labs: Laboratory Results - last 24 hr 02/15/24 12:39: WBC 5.5, RBC 4.55 L, Hgb 14.9, Hct 42.9, MCV 94.3 H, MCH 32.7 H, MCHC 34.7, RDW Std Deviation 47.1 H, RDW Coeff of Yuliya 13.6, Plt Count 156, MPV 10.9, Immature Gran % (Auto) 0.400, Neut % (Auto) 50.1, Lymph % (Auto) 33.0, M [place] % (Auto) 14.7 H, Eos % (Auto) 1.4, Baso % (Auto) 0.4, Absolute Neuts (auto) 2.8, Absolute Lymphs (auto) 1.82, Nucleated RBC % 0, D-Dimer Quant (PE/DVT) 1.26 H*, Sodium 134 L, Potassium 4.0, Chloride 97 L, Carbon Dioxide 29.0, Anion Gap 8, BUN 12, Creatinine 1.21, Estim Creat Clear Calc 53.56, Est GFR (MDRD) Af Amer 75, Est GFR (MDRD) Non-Af 62, BUN/Creatinine Ratio 9.9 L, Glucose 123 H, Lactic Acid 2.7 H*, Calcium 9.1, Troponin I High Sens 13 Micro: Microbiology 02/15/24 13:07 Mucosa - Nose SARS-CoV-2, Influenza & RSV (PCR) - Final SARS-CoV-2 (COVID 19 PCR) Imaging Radiology Impression Chest X-Ray 02/15/24 12:48 IMPRESSION: Hyperinflation. Increased interstitial markings at the lung bases worse on the right side with blunting of the right costophrenic angle. Findings suggests either superimposed atelectasis and/or infiltrate on chronic right basilar scarring. Electronically Signed: Ramon Yepez MD at 13:03 EDT , Chest CTA 02/15/24 13:12 IMPRESSION: Hyperinflation and emphysematous changes with bibasilar scarring and mild basilar atelectasis. No evidence of pulmonary embolism. Electronically Signed: Ramon Yepez MD at 14:06 EDT , Assessment & Plan Assessment/Plan (1) Hypoxemia: (2) History of diabetes mellitus: (3) COPD exacerbation: (4) COVID-19: PLAN: Plan # Hypoxia likely secondary to COPD exacerbation -Patient diagnosed with COVID 8 days ago and initially improved however has worsened again since yesterday, lower suspicion that this is specifically COVID related given initial improvement followed by new decline -In ED was 86% on room air and improved on 2 L O2 -With his cough and shortness of breath and history of COPD suspect this may be due to COPD exacerbation -Admit to floor, continuous O2 monitoring -Chest x-ray no acute changes and CTA w/ no PE -Will swab for other viruses and sputum cx if able -O2 in place, wean as tolerated -IV methylprednisone -Scheduled DuoNebs -Antibiotics: Azithromycin -Incentive spirometer -Mucinex #Type 2 diabetes mellitus -Glucose checks and sliding scale insulin #Hypertension -BP slightly low, will hold antihypertensives at this time #DVT ppx: Lovenox subcu Vandana Truong MD Charges/Coding Visit Charges Inpatient E&M: 31228 Init Hosp L1
[2024-02-15 16:46] LABS: Reflex Lactate? Y
[2024-02-15] MEDS: Azithromycin 250 MG Tablet 500 MG PO (16:57)
[2024-02-15 16:59] LABS: Bedside Glucose 120 mg/dL (74-106)
[2024-02-15] MEDS: Albuterol 2.5 MG/3 ML VIAL.NEB. INHALATION (20:47)
[2024-02-15] MEDS: Atorvastatin Calcium 40 MG Tablet PO (22:00)
[2024-02-15] MEDS: guaiFENesin 1,200 MG Tablet 1200 MG PO (22:00)
[2024-02-15] MEDS: Imipramine HCl 25 MG Tablet 50 MG PO (22:00)
[2024-02-15] MEDS: 0.9% Saline Lock 10 ML Syringe IV (22:01)
[2024-02-15 22:38] LABS: Bedside Glucose 211 mg/dL (74-106)
[2024-02-16] VITALS (14 sets, daily range): BP systolic 98–116; BP diastolic 54–79; PULSE 55–77; RESP 16–18; TEMP 36.2–36.4; O2SAT 93–96
[2024-02-16] MEDS: Ipratropium/Albuterol Sulfate 3 ML AMPUL.NEB INHALATION ×4 (01:09→21:14)
[2024-02-16] MEDS: Insulin Lispro 100 UNIT/ML INSULN.PEN SC ×3 (06:43→16:35)
[2024-02-16] MEDS: 0.9% Saline Lock 10 ML Syringe IV ×2 (06:43→13:40)
[2024-02-16 06:56] LABS: Absolute Lymphocyte Count 1.13 X10^3/uL (0.83-4.51); Absolute Neutrophil Count 4.2 X10^3/uL (2.0-7.7); Basophil# 0.01 X10^3/uL; Basophil% 0.2 % (0-1); Hematocrit 41.9 % (40-54); Hemoglobin 14.6 g/dL (13.0-16.5); Lymphocyte # 1.13 X10^3/ul (0.83-4.51); Lymphocyte % 19.3 % (19-41); Mean Corp Hgb Conc 34.8 g/dL (32-36); Mean Corpuscular Hgb 32.1 pg (27.0-32.0); Mean Corpuscular Volume 92.1 fL (80-94); Mean Platelet Vol. 11.6 fl (6.2-12.0); Monocyte% 8.5 % (0-10); NRBC Flagged by Analyzer 0 % (0-5); Neutrophil # 4.18 X10^3/uL (2.7-7.7); Neutrophil % 71.3 % (47-70); Platelet Count 147 K/mm3 (150-450); RBC Distribution Width CV 13.2 % (11.6-14.6); RBC Distribution Width SD 45.1 fl (35.1-43.9); Red Blood Count 4.55 M/mm3 (4.6-6.2); White Blood Count 5.9 K/mm3 (4.4-11.0)
[2024-02-16 07:11] LABS: Bedside Glucose 154 mg/dL (74-106)
[2024-02-16 07:38] LABS: Anion Gap 5 (5-15); BUN 15 mg/dL (7-18); BUN/Creat Ratio 16.4 RATIO (10-20); Calcium,Total 8.6 mg/dL (8.5-10.1); Chloride 100 mmol/L (98-107); Creatinine, Serum 0.92 mg/dL (0.70-1.30); EST Glomerular Filtration Rate 86 mL/min (>60); Est Glom Filt Rate - Afr Amer 104 mL/min (>60); Estimated Creatinine Clearance 70.44 ml/min; Glucose 186 mg/dL (74-106); Sodium Level 132 mmol/L (136-145)
[2024-02-16] MEDS: Azithromycin 250 MG Tablet 500 MG PO (08:58)
[2024-02-16] MEDS: Enoxaparin 40 MG/0.4 ML Syringe SC (08:58)
[2024-02-16] MEDS: guaiFENesin 1,200 MG Tablet 1200 MG PO ×2 (08:58→22:39)
[2024-02-16 11:59] LABS: Bedside Glucose 265 mg/dL (74-106)
--- NOTE | 2024-02-16 13:08 | PN_ITS ---
Subjective Subjective Patient seen and examined. He said he was feeling much better and felt like his breathing was improving. He denied any chest pain, palpitations, dizziness, nausea, vomiting or any other symptoms. Review of systems is otherwise negative. Objective Data Objective Data Vital Signs: Vital Signs Temp Pulse Resp BP Pulse Ox O2 Del Method O2 Flow Rate 97.1 F L 75 16 108/79 95 Nasal Cannula 4 02/16/24 11:39 02/16/24 12:46 02/16/24 12:46 02/16/24 11:39 02/16/24 11:39 02/16/24 11:39 02/16/24 11:39 Oxygen Flow Rate (L/min) 4 Oxygen Delivery Method Nasal Cannula Weight: 173 lb 1.006 oz Body Mass Index (BMI) 25.5 Intake & Output: Intake and Output for Last 24 Hours 02/14/24 02/15/24 02/16/24 23:59 23:59 23:59 Intake Total 700 / 700 240 / 240 Balance 700 / 700 240 / 240 Lab / Micro Data 02/16/24 06:40 02/16/24 06:40 Labs: Laboratory Results - last 24 hr 02/15/24 12:39: D-Dimer Quant (PE/DVT) 1.26 H*, Sodium 134 L, Potassium 4.0, C hloride 97 L, Carbon Dioxide 29.0, Anion Gap 8, BUN 12, Creatinine 1.21, Estim Creat Clear Calc 53.56, Est GFR (MDRD) Af Amer 75, Est GFR (MDRD) Non-Af 62, B UN/Creatinine Ratio 9.9 L, Glucose 123 H, Lactic Acid 2.7 H*, Calcium 9.1, Troponin I High Sens 13 02/15/24 16:30: POC Glucose 120 H 02/15/24 16:55: Lactic Acid 2.0 02/15/24 21:55: POC Glucose 211 H 02/16/24 06:38: POC Glucose 154 H 02/16/24 06:40: WBC 5.9, RBC 4.55 L, Hgb 14.6, Hct 41.9, MCV 92.1, MCH 32.1 H, MCHC 34.8, RDW Std Deviation 45.1 H, RDW Coeff of Yuliya 13.2, Plt Count 147 L, MPV 11.6, Immature Gran % (Auto) 0.700, Neut % (Auto) 71.3 H, Lymph % (Auto) 19.3, Dale % (Auto) 8.5, Eos % (Auto) 0.0, Baso % (Auto) 0.2, Absolute Neuts (auto) 4.2, Absolute Lymphs (auto) 1.13, Nucleated RBC % 0, Sodium 132 L, Potassium 4.0, Chloride 100, Carbon Dioxide 27.0, Anion Gap 5, BUN 15, Creatinine 0.92, Estim Creat Clear Calc 70.44, Est GFR (MDRD) Af Amer 104, Est GFR (MDRD) Non-Af 86, BUN/Creatinine Ratio 16.4, Glucose 186 H, Calcium 8.6 02/16/24 11:36: POC Glucose 265 H Micro: Microbiology 02/15/24 16:10 Mucosa - Nose Respiratory Panel (PCR) - Final 02/15/24 13:07 Mucosa - Nose SARS-CoV-2, Influenza & RSV (PCR) - Final SARS-CoV-2 (COVID 19 PCR) Radiography Diagnostic Testing: Radiology Impression Chest CTA 02/15/24 13:12 IMPRESSION: Hyperinflation and emphysematous changes with bibasilar scarring and mild basilar atelectasis. No evidence of pulmonary embolism. Electronically Signed: Ramon Yepez MD at 14:06 EDT , Physical Exam Const alert, oriented x3, no apparent distress and well nourished General Appearance: cooperative and well developed HEENT normocephalic, head/scalp atraumatic, moist oral mucous membranes and oropharynx normal Eyes PERRL and EOMs intact bilaterally Neck no lymphadenopathy, supple and no JVD Lymph Lymphatic: no lymphadenopathy noted and no lymphedema noted Resp Resp Narrative: Mildly diminished breath sounds bibasilarly. No wheezes or crackles. On 4 L of oxygen. Cardio regular rate, regular rhythm, S1 normal heart sound, S2 normal heart sound and no murmurs GI normal to inspection, nondistended, normoactive bowel sounds, soft to palpation, non-tender and non-distended Extremity normal capillary refill, no clubbing, cyanosis or edema and no calf tenderness General Extremity: no tenderness to palpation of joints or extremities Skin General Skin Exam: no breakdown Neuro CN's II-XII intact bilaterally, no focal motor deficits, no sensory deficits noted and deep tendon reflexes 2+ bilaterally Motor Exam: strength 5/5 throughout and general weakness Psych thought process normal, cooperative and affect normal Appearance: appropriate Assessment & Plan Assessment/Plan (1) COPD exacerbation: (2) COVID-19: (3) Hypoxemia: PLAN: Plan #Hypoxia due to COVID 19 infection and COPD exacerbation * Feels her shortness of breath is getting better. He was on 2 L of oxygen earlier in the day but subsequently required 4 L of oxygen. He had been diagnosed with COVID about 8 days prior to this admission after he was out of state and admitted to [place]. He states he got short of breath and stopped away in [facility] and tested positive for COVID. * He had initially improved but subsequently started feeling short of breath again. * On breathing treatments bronchodilators. Titrate oxygen to maintain saturation above 90%. * On IV Solu-Medrol. On IV azithromycin due to concern about COPD exacerbation. * #Type 2 diabetes mellitus: On insulin sliding scale. Tactics ACHS. #Hypertension: Blood pressure was running low on admission and still continues to run on the lower side of normal. BP meds currently on hold. He is on lisinopril and carvedilol at home #Hyperlipidemia: On statin DVT prophylaxis: Lovenox Charges/Coding Visit Charges Inpatient E&M: 26638 Subs Hosp L2
--- NOTE | 2024-02-16 14:00 | CASEMGMT ---
JANINE PATE Face to Face with patient for initial transition planning/care coordination assessment. RN CM introduced self and role at [facility]. Patient lying in bed, alert and oriented, at bedside. Patient willing to participate in assessment and is able to answer all questions appropriately. Care providers, pharmacy, and demographics verified. Lace: 6 Strata: 2 PCP: Barry Specialists: Radha Orr Preferred Pharmacy: [facility]: [facility] supplement Prescription Benefit: yes Living Will/HPOA: yes, Omayra Lopez LNOK: Living Arrangements: Patient lives with in a single story home with 1 step and grab bar to enter. Patient is independent at home. Transportation: self, DME/HHC: Patient has raised toilet and pulse ox at home. No previous HHC or SNF. [place] for home oxygen. DME agencies reviewed, prefers [employer]. Patient wishes to discharge home, denies need for home health at this time. Patient states he has no further needs or concerns at this time. CM to follow for discharge planning needs that may arise. Disposition Plan: Patient to discharge home with family support and follow-up plans in place. Will monitor for home oxygen. Tiffanie MATTHEW, RN, CM
[2024-02-16 17:05] LABS: Bedside Glucose 191 mg/dL (74-106)
[2024-02-16] MEDS: Carvedilol 3.125 MG TABLET PO (22:39)
[2024-02-16] MEDS: Atorvastatin Calcium 40 MG Tablet PO (22:40)
[2024-02-16] MEDS: Imipramine HCl 25 MG Tablet 50 MG PO (22:40)
[2024-02-17 00:42] LABS: Bedside Glucose 183 mg/dL (74-106)
[2024-02-17 04:44] VITALS: BP 117/73; PULSE 61; RESP 17; TEMP 35.8; TEMP 36.4; O2SAT 93
[2024-02-17] MEDS: Insulin Lispro 100 UNIT/ML INSULN.PEN SC (06:30)
[2024-02-17 06:48] LABS: Bedside Glucose 182 mg/dL (74-106)
[2024-02-17 06:52] LABS: Anion Gap 5 (5-15); BUN 18 mg/dL (7-18); BUN/Creat Ratio 17.5 RATIO (10-20); Chloride 99 mmol/L (98-107); Creatinine, Serum 1.03 mg/dL (0.70-1.30); EST Glomerular Filtration Rate 75 mL/min (>60); Est Glom Filt Rate - Afr Amer 91 mL/min (>60); Estimated Creatinine Clearance 62.92 ml/min; Glucose 199 mg/dL (74-106); Magnesium 2.3 mg/dL (1.6-2.6); Sodium Level 132 mmol/L (136-145)
[2024-02-17] MEDS: Ipratropium/Albuterol Sulfate 3 ML AMPUL.NEB INHALATION ×2 (07:40→13:31)
[2024-02-17 07:41] VITALS: PULSE 61; RESP 16; O2SAT 91
[2024-02-17 09:14] VITALS: BP 126/81; PULSE 86; RESP 16; TEMP 36.3; O2SAT 92
[2024-02-17] MEDS: guaiFENesin 1,200 MG Tablet 1200 MG PO (10:02)
[2024-02-17] MEDS: Carvedilol 3.125 MG TABLET PO (10:02)
[2024-02-17] MEDS: Azithromycin 250 MG Tablet 500 MG PO (10:02)
[2024-02-17 11:33] VITALS: O2SAT 85; O2SAT 91; O2SAT 92
--- NOTE | 2024-02-17 11:53 | DS.PCM_ITS ---
Providers Date of Admission: 02/16/24 Date of Discharge: 02/17/24 Primary Care Physician: Dr. Bartolo Reddy DO Reason For Visit: HYPOXIA Diagnosis Discharge Diagnosis (1) COPD exacerbation: Status: Chronic Code(s): J44.1 - Chronic obstructive pulmonary disease with (acute) exacerbation (2) COVID-19: Status: Acute Code(s): U07.1 - COVID-19 (3) Hypoxemia: Status: Acute Code(s): R09.02 - Hypoxemia Plan #Hypoxia due to COVID 19 infection and COPD exacerbation * Feels her shortness of breath is getting better. He was on 2 L of oxygen earlier in the day but subsequently required 4 L of oxygen. He had been diagnosed with COVID about 8 days prior to this admission after he was out of state and admitted to [place]. He states he got short of breath and stopped away in [facility] and tested positive for COVID. * He had initially improved but subsequently started feeling short of breath again. * On breathing treatments bronchodilators. Titrate oxygen to maintain saturation above 90%. * On IV Solu-Medrol. On IV azithromycin due to concern about COPD exacerbation. * #Type 2 diabetes mellitus: On insulin sliding scale. Tactics ACHS. #Hypertension: Blood pressure was running low on admission and still continues to run on the lower side of normal. BP meds currently on hold. He is on lisinopril and carvedilol at home #Hyperlipidemia: On statin DVT prophylaxis: Lovenox Medications at Discharge Home Medications atorvastatin 40 mg tablet 40 mg PO QHS 10/10/22 carvedilol 6.25 mg tablet 6.25 mg PO BID 10/10/22 clonazepam 1 mg tablet 1 mg PO BID PANIC ATTACKS 10/10/22 imipramine HCl 50 mg tablet 50 mg PO QHS PANIC ATTACKS 10/10/22 lisinopril 2.5 mg tablet 2.5 mg PO QHS HTN 10/10/22 albuterol sulfate 90 mcg/actuation aerosol inhaler (ProAir HFA) 2 puff inhalation Q6H PRN shortness of breath or wheezing #8.5 grams 10/14/22 multivitamin 1 tab PO DAILY SUPPLEMENT 11/30/22 metformin 500 mg tablet,extended release 24 hr 500 mg PO BID 02/15/24 prednisone 20 mg tablet 40 mg PO DAILY 02/15/24 Hospital Course Operations None Procedures None Summary of Care Provided Minutes Spent on Discharge: 47 Hospital Course: Patient is a 73-year-old male with a past medical history as outlined was admitted through the ED on 02/15/2024 with a complaint of shortness of breath that been going on for about a day. His symptoms had initially started about 8 days prior to admission when he was traveling in the [facility] and he stopped in the hospital in [place] and tested positive for COVID. His shortness of breath improved after he was given prednisone and antibiotics and sent home. However when he got back home in [place] his symptoms. And his shortness of breath gradually worsened. He therefore came into the ED where he was saturating at 86% on room air. CT of the chest was negative for PE and workup was otherwise unremarkable apart from COVID still being positive. He was admitted and managed for hypoxia due to COVID-19 pneumonia. He was started on remdesivir and placed on steroids again. His breathing gradually improved and he felt better. He was weaned off of oxygen onto room air. He remained stable and was discharged home on 02/17/2024. He is to follow up with his PCP within 1-2 weeks. He had walking pulse ox which showed he qualified for 2L of oxygen. He was therefore discharged home on 2L of oxygen. He is to follow up with his PCP within 1-2 weeks. Patient seen and examined prior to discharge. He felt much better and had no active complaints. Review of systems is otherwise negative. Labs and vitals reviewed. Home meds reviewd and reconciled. Physical Exam Const alert, oriented x3, no apparent distress and well nourished General Appearance: cooperative, comfortable and well developed HEENT normocephalic, head/scalp atraumatic, hearing grossly normal bilaterally, moist oral mucous membranes and oropharynx normal Mouth: oral and palatal mucosa normal Eyes PERRL, EOMs intact bilaterally and conjunctivae normal Neck no lymphadenopathy, supple and no JVD Lymph Lymphatic: no lymphadenopathy noted and no lymphedema noted Resp Resp Narrative: Mildly diminished breath sounds bibasilarly. No wheezes or crackles. On room air at time of review. Cardio regular rate, regular rhythm, S1 normal heart sound, S2 normal heart sound and no murmurs GI normal to inspection, nondistended, normoactive bowel sounds, soft to palpation, non-tender and non-distended Extremity normal to inspection, full ROM, normal capillary refill, no clubbing, cyanosis or edema and no calf tenderness General Extremity: no tenderness to palpation of joints or extremities Skin no rashes or lesions noted General Skin Exam: no breakdown Neuro oriented x3, CN's II-XII intact bilaterally, moves all extremities, no focal motor deficits, no sensory deficits noted and deep tendon reflexes 2+ bilaterally Motor Exam: strength 5/5 throughout and general weakness Psych thought process normal, cooperative and affect normal Appearance: appropriate Weight / BMI Weight Weight: 173 lb 1.006 oz Body Mass Index (BMI) 25.5 ABG / Lab / Microbiology Data 02/16/24 06:40 02/17/24 06:09 Laboratory: Laboratory Results - last 24 hr 02/16/24 11:36: POC Glucose 265 H 02/16/24 16:31: POC Glucose 191 H 02/16/24 22:46: POC Glucose 183 H 02/17/24 06:09: Sodium 132 L, Potassium 5.0, Chloride 99, Carbon Dioxide 28.0, Anion Gap 5, BUN 18, Creatinine 1.03, Estim Creat Clear Calc 62.92, Est GFR (MDRD) Af Amer 91, Est GFR (MDRD) Non-Af 75, BUN/Creatinine Ratio 17.5, Glucose 199 H, Calcium 9.0, Magnesium 2.3 02/17/24 06:29: POC Glucose 182 H Microbiology: Microbiology 02/15/24 17:42 Sputum, Expectorated/Coughed Gram Stain - Final 02/15/24 17:42 Sputum, Expectorated/Coughed Respiratory Culture - Final Mixed normal respiratory tatiana. No Streptococcus pneumoniae, beta-hemolytic Streptococcus or Staphylococcus aureus isolated. 02/15/24 16:10 Mucosa - Nose Respiratory Panel (PCR) - Final 02/15/24 13:07 Mucosa - Nose SARS-CoV-2, Influenza & RSV (PCR) - Final SARS-CoV-2 (COVID 19 PCR) D/C Instructions Discharge Diet: Low fat / Low cholesterol Discharge Activity: Return to Normal Activity Weight Bearing Status: Weight bearing as tolerated Call your doctor if you observe: Fever of 101 or Higher, Shortness of breath, Dizziness, Swelling in the ankles and Chest pain Meaningful Use Info Meaningful Use Meaningful Use Diagnoses (Choose all that apply): None applicable Ischemic Stroke Statin Dosing Therapy Reference: STATIN DOSE THERAPY REFERENCE: * Patients > 75 years receive moderate or high dose statin therapy. * Patients 75 years or YOUNGER should receive HIGH intensity statin dose unless contraindicated. You will be required to document reason for non-treatment if statin daily dose does not meet guidelines. HIGH DOSE STATIN THERAPY DAILY Atorvastatin > than or = to 40 mg Rosuvastatin > than or = to 20 mg Amlodipine + Atorvastatin > than or = to 2.5/40 mg Ezetimibe + Simvastatin 10/80 mg Simvastatin 80mg Discharge Plan Admission Admit Date/Time: 02/16/24 12:12 Primary Reason for Your Visit: covid, hypoxia Attending Provider: Luana Davenport Primary Care Provider: Bartolo Reddy Consulting Providers: Vandana Truong Instructions Patient Instructions: Coronavirus Disease 2019 (COVID-19): Overview, Coronavirus Disease 2019 (COVID-19): Prevention Discharge Orders/Prescriptions Prescriptions: Continued atorvastatin 40 mg Tablet 40 mg PO QHS imipramine HCl 50 mg Tablet 50 mg PO QHS carvedilol 6.25 mg Tablet 6.25 mg PO BID Rx Instructions: must administer with a meal/food clonazepam 1 mg Tablet 1 mg PO BID lisinopril 2.5 mg Tablet 2.5 mg PO QHS albuterol sulfate [ProAir HFA] 90 mcg/actuation HFA aerosol inhaler 2 puff inhalation Q6H PRN (Reason: shortness of breath or wheezing) Qty: 8.5 0RF Rx Instructions: use two puffs four times a day for 5 days, then two puffs four times a day as needed multivitamin Tablet 1 tab PO DAILY metformin 500 mg tablet extended release 24 hr 500 mg PO BID prednisone 20 mg tablet 40 mg PO DAILY Discontinued cefpodoxime 200 mg tablet 200 mg PO Q12H Referrals / Follow Up: Bartolo Reddy, [Primary Care Provider] - Within 1 Week NOT,DEFINED [Non-Staff] - Disposition Disposition (needs filled in before D/C Order can be placed): Home, Self Care Charges/Coding Visit Charges Inpatient E&M: 79580 Disch Hosp >30min
[2024-02-17 13:31] VITALS: PULSE 75; RESP 16
[2024-02-17 13:35] VITALS: O2SAT 91
--- NOTE | 2024-02-17 13:39 | CASEMGMT ---
Addendum entered by [employer] 02/17/24 14:15: JANINE PATE to room. Introduced self and role. Pt aware he is to use O2 @ 2 L/M w/exertion and pt/ aware to call [employer] prior to leaving [facility] to make arrangements for [employer] to delivery home o2. Questions answered and they voice understanding. Discussed Pt Link. Pt and decline referral. They deny having other discharge needs/questions. Original Note: JANINE PATE NOTE: Pt qualifies for O2 @ 2l/m w/exertion. Script for O2 obtained from Dr Davenport and sent to [employer] via [email or web address]. Call placed to Araceli at [facility] @ she was made aware pt is discharging today and is awaiting portable O2 tank delivery to his room. Isabel MATTHEW RN CM
--- NOTE | 2024-02-17 17:16 | CASEMGMT ---
JANINE PATE NOTE: Therapy note reviewed. Pt ambulated 8 ft x 2 w/CGA and WW today. Additional therapy recommended. Discussed therapy recommendations and discharge plan. Pt does not want to go to a SNF, he wants to go home and states feels he will be safe @ home. Discussed HHC and he and family are agreeable. Pt and would like [facility] as their 1st choice and decline wanting list of other options unless [facility] unable to accept him. Order for HHC: SN and PT/OT placed. Message left for Tiffanie MEHTA CM, that referral needs sent tomorrow for HHC. Isabel MATTHEW RN, CM
--- NOTE | 2024-02-17 17:42 | CASEMGMT ---
JANINE PATE NOTE: Message received that pt called in re: Mackenzie not having documentation of his O2 order. Call placed to Araceli @ [facility] to notify her. Araceli called this RN HERLINDA back and states she has reached out to [facility] and order has been confirmed. JANINE PATE placed call to pt and he was made aware. He was instructed to call [facility] again and to call this RN HERLINDA back once he spoke w/them. Pt called this JANINE PATE back and states he contacted [facility] again, they told him they did receive the order, and they will be calling him back to arrange for delivery of O2 @ home tonight. Isabel MATTHEW RN CM
== END 2024-02-17 15:42 | disposition home or self-care (01) | DRG 177 ==
LOC: ED 13:53 → PCU 15:23
PROVIDERS: Admitting Provider Internal Medicine; Emergency Provider Emergency Medicine; PCP Hospitalist; Visit Provider Student in an Organized Health Care Education/Training Program
DX: U07.1 COVID-19 (principal); J12.82 Pneumonia due to coronavirus disease 2019; J44.1 Chronic obstructive pulmonary disease with (acute) exacerbation; J44.0 Chronic obstructive pulmonary disease with (acute) lower respiratory infection; E11.9 Type 2 diabetes mellitus without complications; I10 Essential (primary) hypertension; E78.5 Hyperlipidemia, unspecified; Z79.84 Long term (current) use of oral hypoglycemic drugs; Z79.899 Other long term (current) drug therapy; Z87.891 Personal history of nicotine dependence
CPT/HCPCS: 36415; 71045; 71275; 80048; 82962; 83605; 83735; 84484; 85025; 85379; 87040; 87070; 87205; 87631; 87633; 93005; 94640; 94668; 97802; 99285; J7030; Q9967; A4216